=== PATIENT | male | born 1950 | race Caucasian/White ===

== ENCOUNTER → 2018-08-14 | Outpatient (CLI) | payer BC | END | disposition home or self-care (01) | LOC: RAH 15:55 | PROVIDERS: ATTEND Family Medicine | DX: S09.90XA Unspecified injury of head, initial encounter (principal); R41.0 Disorientation, unspecified; G31.9 Degenerative disease of nervous system, unspecified; X58.XXXA Exposure to other specified factors, initial encounter; Y93.89 Activity, other specified; Y92.89 Other specified places as the place of occurrence of the external cause; Y99.8 Other external cause status | CPT/HCPCS: 70450 ==

== ENCOUNTER → 2019-12-23 | Outpatient (CLI) | payer MEDICARE ==
[~2019-12-23] MED LIST: GADODIAMIDE 10 MMOL/20 ML VIAL IV ONE
== END | disposition home or self-care (01) ==
LOC: RAH 11:17
PROVIDERS: ATTEND Family Medicine
DX: I65.23 Occlusion and stenosis of bilateral carotid arteries (principal); G45.9 Transient cerebral ischemic attack, unspecified
CPT/HCPCS: 70544; 70549; 70551; A9579

== ENCOUNTER → 2023-11-13 | Outpatient (CLI) | payer OTHER ==
[2023-11-13 12:31] LABS: CREATININE 0.8 mg/dL (0.5-1.3); POTASSIUM 4.4 mmol/L (3.5-5.1)
== END | disposition home or self-care (01) ==
LOC: LAB 09:12
PROVIDERS: ATTEND Internal Medicine Cardiovascular Disease
DX: I10 Essential (primary) hypertension (principal); E78.5 Hyperlipidemia, unspecified
CPT/HCPCS: 36415; 80048; 80061

== ENCOUNTER 2025-07-06 10:51 | Day surgery (SDC) | payer OTHER ==
[2025-07-02 15:22] LABS: NUCLEATED RED BLOOD CELLS 4.4 % (0.0-0.19); PLATELET COUNT (AUTO) 133.0 K/uL (130-400); RED BLOOD CELL COUNT(AUTO) 2.52 MIL/uL (4.50-6.20); RED CELL DISTRIBUTION WIDTH 17.4 % (11.0-15.5); WHITE BLOOD COUNT (AUTO) 5.7 K/uL (4.8-10.8)
[2025-07-02 15:27] LABS: APPEARANCE,URINE CLEAR (CLEAR); GLUCOSE, URINE (UA) NEGATIVE (NEGATIVE); LEUKOCYTE ESTERASE ,URINE NEGATIVE Leu/uL (NEGATIVE); NITRATE,URINE NEGATIVE (NEGATIVE); OCCULT BLOOD,URINE NEGATIVE (NEGATIVE)
[2025-07-02 15:29] LABS: ADD UA MICROSCOPIC NO
[2025-07-02 15:32] LABS: INR 0.94 (0.85-1.15)
[2025-07-02 15:36] LABS: ASPARTATE AMINOTRANSFERASE 33.0 U/L (10-37); CREATININE 0.7 mg/dL (0.5-1.3); GLOMERULAR FILTR. RATE CALC 98.0 mL/min (>90); GLUCOSE,RANDOM 127.0 mg/dL (70-105); SODIUM SERUM 139.0 mmol/L (136-145); TOTAL PROTEIN, SERUM 6.9 g/dL (6.0-8.3); UREA NITROGEN, BLOOD 11.0 mg/dL (7-18)
[2025-07-02 15:45] VITALS: BP 110/56; PULSE 74; RESP 18; TEMP 97.2
--- NOTE | 2025-07-02 16:06 | HMCIMG ---
EXAM: CR Chest, 2 View. CLINICAL HISTORY: PRE OP COMPARISON: None provided. FINDINGS: LUNGS: Emphysematous lung changes No active infiltrate PLEURAL SPACES: No pleural effusion or pneumothorax. MEDIASTINUM: The cardiomediastinal silhouette is within normal limits. BONES: No acute osseous abnormality. IMPRESSION: 1. Emphysematous lung changes 2. No active infiltrate /[place]
--- NOTE | 2025-07-03 06:04 | EKG ---
[facility] Test Date: 2025-07-02 Test Time: 16:09:00 Pat Name: ALICE KNOWLES Department: [facility] Room: Gender: M Ticket Taker Ferryboat: [phone] : 1950 Requested By: NERI ALLISON Order Number: [id number] Reading MD: Hossein Carr Measurements Intervals [place] Rate: 71 P: 63 AL: 178 QRS: -43 QRSD: 80 T: 12 QT: 415 QTc: 450 Interpretive Statements Sinus rhythm Inferior infarct, old Consider anteroseptal infarct No previous ECG available for comparison Electronically Signed On 07-03-2025 18:56:31 CONVEX GRINDER by Hossein Carr Please click the below link to view image of tracing.
--- NOTE | 2025-07-05 11:03 | NUR ---
REPORT DR HARRELL REVIEWED EKG. OK TO PROCEED
--- NOTE | 2025-07-05 15:04 | NUR ---
report cbc faxed over to dr villavicencio/cynthia. smith to proceed Addendum: 07/05/25 at 1512 by CHUCK PENA RN RN dr najera/ juan diaz also informed as per dr villavicencio/ gabi ramirez
[~2025-07-06] VITALS: Ht 182.9 cm; Wt 62.5 kg
[2025-07-06] VITALS (10 sets, daily range): BP systolic 101–131; BP diastolic 57–74; PULSE 57–80; RESP 14–16; TEMP 97.3–97.5
[~2025-07-06 10:51] MED LIST changes: +CLOP75TA32 PO; -GADODIAMIDE 10 MMOL/20 ML VIAL IV ONE; +LOSA25TA41 PO; +METO-408 PO; +ROSU40TA88 PO
[2025-07-06] MEDS ORDERED: LACTATED RINGERS 1000ML 1,000 ML IV ONE (11:05)
[2025-07-06] MEDS ORDERED: LIDOCAINE PF 100MG/5ML (2%) SYRINGE 5ML ONE (11:49)
[2025-07-06] MEDS ORDERED: MIDAZOLAM HCL 1 MG/ML 2ML VIAL ONE (11:49)
[2025-07-06] MEDS: MEROPENEM 1GM 1 GM VIAL ONE (12:55)
--- NOTE | 2025-07-06 14:23 | OP ---
DATE OF PROCEDURE: 07/06/2025 PREOPERATIVE DIAGNOSIS: PSA of 4,372. PROCEDURE PERFORMED: Transrectal ultrasonography with guided biopsy, 6 cores of prostate. POSTOPERATIVE DIAGNOSIS: PSA of 4,372. ANESTHESIA: Sedation. INDICATIONS FOR PROCEDURE: This is a 74-year-old male with a PSA of 4,372 on 06/12, scheduled for transrectal ultrasound guided biopsy and indicated procedures. All risks, benefits, alternatives and potential complications of procedure were carefully reviewed with the patient. Questions were answered. He did request to proceed and did provide full informed consent. FINDINGS: The patient at transrectal ultrasound has a 25 g prostate. No hypoechogenicity identified. Prostatic capsule intact. DESCRIPTION OF PROCEDURE: The patient was duly identified. Informed consent was confirmed. Timeout was taken, brought to the operating room, placed on the table, placed under sedation, and then placed in a lateral decubitus position. Transrectal ultrasonography was then performed. Prostate was identified, 25 g. No hypoechogenicity is noted. Multiple calcifications noted. Capsule intact. Next, using a spring-loaded gun, 6 biopsies were taken, a total of 3 from the left lobe and 3 from the right lobe, sent to Pathology. He tolerated the procedure well. A gentle pressure for about 5 minutes was placed on the rectum. No complications. The patient was now awakened from anesthesia. He did receive preoperative IV antibiotic with meropenem, and following recovery from sedation, the patient was transferred from operating room to recovery room in good stable and hemodynamically satisfactory condition having experienced no complications. Plan is for the patient to be discharged home later today on oral antibiotics and follow up in my office in a week's time to review pathology report. No complications. TID: [id number] RECEIPT: [id number]
--- NOTE | 2025-07-06 14:25 | NUR ---
BOTH PT AND SPOUSE GIVEN VERBAL AND WRITTEN DISCHARGE INSTRUCTIONS. ASKED IF PT WOULD BE ABLE TO DRINK ALCOHOL TODAY BECAUSE PT IS AN ALCOHOLIC. I DID REITERATE TO BOTH OF THEM WE STRONGLY DO NOT RECOMMEND DRINKING ALCOHOL. PT TAKEN OUT VIA WHEELCHAIR SPOUSE DRIVING.
--- NOTE | 2025-07-07 02:33 | HMCIMG ---
EXAMINATION: Ultrasound (Transrectal) of the Prostate Clinical Indication: Abnormal prostate. Technique: Transrectal ultrasound examination of the prostate was performed using high-frequency endorectal probe. Both transverse and sagittal planes were evaluated. Comparison: None available. FINDINGS: The prostate demonstrates normal size and contour. A suspicious hypoechoic nodular lesion is visualized in the right side of the prostate at the base region. The remainder of the gland is unremarkable. No obvious calcifications or cystic changes noted. No periprostatic fluid collection detected. IMPRESSION: * Suspicious hypoechoic nodular lesion in the right base of the prostate. Further evaluation with dynamic contrast-enhanced MRI of the prostate and correlation with serum PSA levels is recommended to assess for malignancy. /[place]
== END 2025-07-06 14:33 | disposition home or self-care (01) ==
LOC: DAH 10:51
PROVIDERS: ATTEND Urology
DX: R97.20 Elevated prostate specific antigen [PSA] (principal); C61 Malignant neoplasm of prostate; I10 Essential (primary) hypertension; Z79.01 Long term (current) use of anticoagulants; Z79.899 Other long term (current) drug therapy
CPT/HCPCS: 71046; 80053; 85027; 85610; 85730; 87086; 81003; 36415; 93005; 55700; 76872; 88305; 88344; A6260; A4663; J7120 ×2; A4606; J3010; J1100; J2003; J2250; J2704; J2405; J2185; J3490; A4215 ×2; A4213; A4222; A4221; A4216; A4223 ×2

== ENCOUNTER 2025-08-08 18:46 | Inpatient (IN) | payer OTHER ==
[~2025-08-08] VITALS: Ht 182.9 cm; Wt 63.3 kg
--- NOTE | 2025-08-08 19:29 | ERN ---
ED Note History of Present Illness Stated Complaint: FALL Chief Complaint: Mechanical Fall Time Seen by MD: 19:11 Dictation: This is a 74-year-old male who presented to the emergency room via EMS after he sustained a fall on his driveway. This happened an hour ago when apparently he was walking on the driveway and his shoes slipped under his foot and he fell on the right shoulder. He denied any loss of consciousness. He does not take any blood thinners. He is under the care of Dr. Villa, oncologist for prostate cancer and he is undergoing chemotherapy? No chest pain pressure PND orthopnea no dizziness headache or any symptoms prior to fall. Temperature 98.3 pulse 103 respirations 20 blood pressure 104/78 with a pulse oximetry of 97% on room air His chronic medical problems include hypertension and prostate CA, daily tobacco abuse and EtOH Allergies: Coded Allergies: No Known Drug Allergies (Unverified Allergy, Unknown, 06/11/16) Home Meds Reported Medications Losartan Potassium (Losartan Potassium) 25 Mg Tablet, 25 MG PO AM, TAB 07/02/25 Rosuvastatin Calcium (Rosuvastatin Calcium) 40 Mg Tablet, 40 MG PO DAILY, TAB 07/02/25 Metoprolol Succinate (Metoprolol Succinate) 25 Mg Tab.er.24h, 12.5 MG PO AM, TAB 07/02/25 Clopidogrel Bisulfate (Clopidogrel) 75 Mg Tablet, 75 MG PO DAILY, TAB 07/02/25 Past Medical History Past Medical History: Cancer, Dementia, Hypertension, Other Additional Past Medical Hx: PROSTATE CA Surgical History: Other Surgical History Other: BACK SX X2 Additional History Comments: PROSTATE CANCER Family History: Negative 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, 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 Note Reviewed/Agreed w/PFSH: Yes Review of System Dictation Constitutional: Negative for fever,chills, and weight loss Eyes: Negative for injury, pain,redness, and discharge ENT: Negative for injury,pain or swelling Cardiovascular: Negative for chest pain, palpitations, and edema Respiratory: Negative for shortness of breath, cough, and wheezing, Abdomen/GI: Negative for abdominal pain, nausea, vomiting, diarrhea, and constipation Back: Negative for injury and pain : Negative for injury, bleeding and discharge MS/Extremity: Negative for injury and deformity right shoulder pain Skin: Negative for rash, and discoloration Neuro: Negative for headache, weakness, numbness, tingling, and seizure Psych: Negative for suicide ideation, homicidal ideation, and hallucinations Initial Vital Sign VS Vital Signs Date Time Temp Pulse Resp B/P (MAP) Pulse Ox O2 Delivery O2 Flow Rate FiO2 08/08/25 18:47 98.2 103 20 104/78 97 Room Air 0 08/08/25 19:46 21 Physical Exam Dictation General: awake, alert, NAD thin emaciated chronically ill-appearing male Head/Face: Normocephalic, atraumatic Eyes: PERRL, EOMI, vision at baseline ENT: oral cavity clear, TMs clear, no signs of infection, poor dentition Neck: Trachea midline, supple, no nuchal rigidity Cardiovascular: RRR, normal S1/S2, No MRGs, no JVD Respiratory: Prolonged expiratory phase no respiratory distress, No rales or wheezes Abdomen: Soft, non-tender, non-distended, normal bowel sounds, no guarding or rebound. Skin: Warm, dry, normal turgor, no rash MS/Extremity: Pulses equal, no cyanosis, neurovascular intact, FROM right shoulder in his sling, deformity in the right shoulder area, severe tenderness and reduced range of motion Neuro: COAx4, GCS 15, strength 5/5, CN 2-12 intact, normal cerebellar exam, normal gait, Psych: Normal behavior, mood, and affect normal Extremities-trace edema without any palpable cords, Homans sign is negative Results (Laboratory/Radiology) Laboratory/Radiology Laboratory Tests Test 08/08/25 19:30 White Blood Count 5.7 K/uL (4.8-10.8) Red Blood Count 2.03 MIL/uL (4.50-6.20) L Hemoglobin 6.8 g/dL (14.0-18.0) *L Hematocrit 21.4 % (42-54) L Mean Corpuscular Volume 105.4 fL (79-99) H Mean Corpuscular Hemoglobin 33.5 pg (27.0-33.0) H Mean Corpuscular Hemoglobin Concent 31.8 g/dL (32.0-36.0) L Red Cell Distribution Width 19.5 % (11.0-15.5) H Platelet Count 180 K/uL (130-400) Mean Platelet Volume 9.2 fL (7.5-10.5) Immature Granulocyte % (Auto) 5.9 % (0-1) H Neutrophils (%) (Auto) 67.9 % (40.0-77.0) Lymphocytes (%) (Auto) 17.3 % (21.0-51.0) L Monocytes (%) (Auto) 7.0 % (3.0-13.0) Eosinophils (%) (Auto) 1.2 % (0.0-8.0) Basophils (%) (Auto) 0.7 % (0.0-5.0) Neutrophils # (Auto) 3.9 K/uL (1.8-7.7) Lymphocytes # (Auto) 1.0 K/uL (1.0-4.8) Monocytes # (Auto) 0.4 K/uL (0.1-1.0) Eosinophils # (Auto) 0.07 K/uL (0.00-0.70) Basophils # (Auto) 0.04 K/uL (0.00-0.20) Absolute Immature Granulocyte (auto 0.34 K/uL (0-1) Nucleated Red Blood Cells 0.7 % (0.0-0.19) H Red Blood Cell Morphology See comments Sodium Level 138 mmol/L (136-145) Potassium Level 3.4 mmol/L (3.5-5.1) L Chloride Level 105 mmol/L (101-111) Carbon Dioxide Level 24 mmol/L (21-32) Blood Urea Nitrogen 12 mg/dL (7-18) Creatinine 1.1 mg/dL (0.5-1.3) Glomerular Filtration Rate Calc 71 mL/min (>90) Random Glucose 121 mg/dL (70-105) H Total Calcium 5.7 mg/dL (8.5-10.1) *L Total Creatine Kinase 82 U/L (21-232) Troponin I High Sensitivity 106 ng/L (4-75) *H Labs Reviewed?: Yes X-RAY Comment: REASON: fall ORDERING PHYSICIAN: KAVITHA ENGLISH MD PROCEDURE: SHOL 2V RT - SHOULDER COMP 2+VWS RT EXAM: CR right Shoulder, 2 View. CLINICAL HISTORY: fall COMPARISON: None provided. FINDINGS: BONES: Acute comminuted fracture multi part fracture proximal humerus. Involves humeral neck as well as greater tuberosity. Some impaction JOINTS: No dislocation. The joint spaces are normal. SOFT TISSUES: The soft tissues are unremarkable. IMPRESSION: Acute comminuted fracture multi part fracture proximal humerus. Involves humeral neck as well as greater tuberosity. Some impaction /[place] DICTATED BY: ALICE VARELA MD DATE: 08/08/252137 ELECTRONICALLY SIGNED BY: ALICE VARELA MD DATE: 08/08/252137 ED Course ED Course Orders Procedure Category Date Status Time Cardiac Panel LAB 08/08/25 Complete 19:13 Cbc With Differential LAB 08/08/25 Complete 19:13 Basic Metabolic Panel LAB 08/08/25 Complete 19:13 Shoulder Comp 2+Vws Rt RAD 08/08/25 Resulted 19:13 Chest 1vw RAD 08/08/25 Logged 19:18 12 Lead Ekg Tracing- EKG 08/08/25 Resulted Technical 19:18 Morphine 2mg Syg PHA 08/08/25 Complete (Morphine 2mg Syg) 19:30 Orphenadrine Citrate PHA 08/08/25 Complete (Norflex) 20:30 Hydrocodone/Apap PHA 08/08/25 Complete 5/325 (Tate 5/325mg) 21:00 Hydromorphone 1 Mg PHA 08/08/25 Complete Inj (Dilaudid 1mg Inj 21:00 Ondansetron 4mg Inj PHA 08/08/25 Complete (Zofran 4mg Inj) 21:00 Type And Screen BBK 08/08/25 In Process 21:04 Consent For CPOE 08/08/25 Transmitted Transfusion 21:04 Rbc-No Active Bleeding BBK 08/08/25 In Process 21:04 Shoulder Ltd 1vw Rt RAD 08/08/25 Resulted 21:23 Calcium Gluc 1gm PHA 08/08/25 Logged (Calcium Gluc 1gm 22:30 Edm Admit Bridge Order ADM 08/08/25 Transmitted 22:05 Current Medications Medications (Trade) Dose Ordered Sig/Mari Route PRN Reason Start Time Stop Time Status Last Admin Dose Admin Acetaminophen/ Hydrocodone Bitart (NORco 5/325MG) 1 tab ONCE ONCE PO 08/08/25 21:00 08/08/25 21:01 DC 08/08/25 20:51 Calcium Gluconate (Calcium Gluc 1gm Vial) 1 gm AD ONCE IV 08/08/25 22:30 08/08/25 22:31 UNV Hydromorphone HCl (DiLAUDid 1MG INJ) 1 mg ONCE ONCE IVP 08/08/25 21:00 08/08/25 21:32 DC 08/08/25 21:51 Morphine Sulfate (morPHINE 2MG SYG) 2 mg ONCE ONCE IVP 08/08/25 19:30 08/08/25 19:31 DC 08/08/25 19:37 Ondansetron HCl (zoFRAN 4MG INJ) 4 mg ONCE ONCE IVP 08/08/25 21:00 08/08/25 21:32 DC 08/08/25 21:51 Orphenadrine Citrate (Norflex) 60 mg ONCE ONCE IVP 08/08/25 20:30 08/08/25 20:31 DC Vital Signs Date Time Temp Pulse Resp B/P (MAP) Pulse Ox O2 Delivery O2 Flow Rate FiO2 08/08/25 21:36 82 18 126/69 100 Room Air* 0 N/A ETT Piece+ 08/08/25 19:46 82 18 109/56 99 Room Air* 0 21 08/08/25 18:47 98.2 103 20 104/78 97 Room Air 0 Medical Decision Making MDM Differential diagnosis- Closed head injury, intracranial event, depressed skull fractures, whiplash injury to the neck, herniated discs, cervical vertebral fracture, right shoulder pain, right shoulder dislocation, fracture of the humerus, contusion This is a 74-year-old male who presented to the emergency room via EMS after he sustained a fall on his driveway. This happened an hour ago when apparently he was walking on the driveway and his shoes slipped under his foot and he fell on the right shoulder. He denied any loss of consciousness. He does not take any blood thinners. He is under the care of Dr. Villa, oncologist for prostate cancer and he is undergoing chemotherapy? No chest pain pressure PND orthopnea no dizziness headache or any symptoms prior to fall. Temperature 98.3 pulse 103 respirations 20 blood pressure 104/78 with a pulse oximetry of 97% on room air His chronic medical problems include hypertension and prostate CA, daily tobacco abuse and EtOH I requested Labs right shoulder x-ray and with known history of alcoholism and frailty with a cancer I also requested head CT and C-spine. 7:25 p.m. patient adamantly refused head CT and C-spine. 8:00 p.m. lab called the results of hemoglobin is 6.8. I had requested type and cross and also inquired with the patient about PRBC transfusion and he adamantly refused stating that he does not wanted Patient's spouse by this time has showed up and left the decision to the patient 9:[address] Benjie Cavanaugh orthopedic surgeon about the fracture of the right humerus in the multiple places and intractable pain, he requested wide scapular view and informed me that he will see the patient tomorrow after his OR schedule. I updated the patient and spouse and offered to admit to the hospital for adequate pain control, transfusion of PRBC and also have orthopedic evaluation in a.m. and patient eventually agreed Patient's pain has been intractable and so far has a received morphine, hydrocodone without much relief Additional Dilaudid requested 10:05 p.m. patient accepted by Heather mid-level provider for [facility] hospitalist group for admission and further management Problem List Problem List: (1) Prostate cancer (2) Tobacco abuse (3) Alcohol use disorder (4) Cancer cachexia (5) Right anterior shoulder pain (6) Fall from standing (7) Severe anemia (8) Intractable pain DX & DISP Disposition: Discharge Departure Impression: Primary Impression: Fall from standing Additional Impressions: Right anterior shoulder pain, Prostate cancer, Tobacco abuse, Alcohol use disorder, Cancer cachexia, Severe anemia, Intractable pain Condition: Stable Additional Instructions: Patient and the caregiver have been informed of all the diagnostic tests and the imaging conducted during the today's visit to the emergency room and has verbalized understanding of the results I have personally reviewed and interpreted all diagnostic exams performed here in the ER today as well as the vital signs documented by the nursing staff. The patient is now being discharged to home and should follow up with the primary care physician or the specialist as directed by the ER staff. Follow-up with primary care provider in 1 to 2 days. Take medications as directed here in the emergency room. Okay to continue home medications unless otherwise discussed during your visit in the emergency room today. Return to your nearest emergency room if symptoms worsen or if there is no improvement. Call 911 if you need immediate assistance. Take Tylenol or Motrin over -the-counter as needed and if no contraindications are present. Increase oral hydration. A wound culture or urine culture was ordered here in the emergency room department please follow-up with primary care provider and advise them to get repeat ports from our facility. If you had any Donald wrap/splints that were applied here, please do not remove them until you see your primary care or specialty. 1 schedule a follow-up appointment; call your primary care physician's office on the next business day to set up a follow-up appointment. 2. Monitor symptoms; if your symptoms worsen return to the emergency room immediately. 3. Return to school/work; you may return to work or school in 2 days or as directed by your primary care physician. 4. Manage pain and fever; take [id number] Tylenol or Advil for pain or fever if there are no contraindications follow the recommended dosage i nstructions. 5. Stay well hydrated; drink plenty of oral fluids to stay hydrated. 6. Take prescribed medications; take any medications prescribed in the emergency room as directed bring them with you to your primary care physician visit for possible adjustments. 7. Complete medication course; finish the entire course of medication as prescribed even if you start feeling better. Do not have any leftover medication unless instructed otherwise. 8. Follow up on culture results; if a urine culture and wound culture was ordered in the emergency room please follow-up with your primary care physician within 2-3 days to review the culture and sensitivity report for appropriate antibiotic therapy adjustments. 9. Resume home medications; you may resume taking your home medications unless instructed otherwise. Referrals: JULIAN MORRISSEY MD (PCP) KAVITHA ENGLISH MD Aug 08, 2025 19:29
--- NOTE | 2025-08-08 19:35 | EKG ---
[facility] Test Date: 2025-08-08 Test Time: 19:26:10 Pat Name: ALICE KNOWLES Department: ED Room: Gender: M Service Advocate Contact: [phone] : 1950 Requested By: KAVITHA ENGLISH Order Number: [id number] Reading MD: Brian Amezquita Measurements Intervals [place] Rate: 81 P: 66 [place]: 195 QRS: 4 QRSD: 84 T: 63 QT: 421 QTc: 484 Interpretive Statements Sinus rhythm Atrial premature complex Low voltage, extremity leads Nonspecific STT abnormality Compared to ECG 07/02/2025 16:09:00 Atrial premature complex(es) now present Low QRS voltage now present Myocardial infarct finding no longer present Electronically Signed On 08-08-2025 21:54:40 EMERGENCY DEPARTMENT MANAGER by Brian Amezquita Please click the below link to view image of tracing.
[2025-08-08 19:38] LABS: IMMATURE GRANULOCYTE ABSOLUTE 0.34 K/uL (0-1); NUCLEATED RED BLOOD CELLS 0.7 % (0.0-0.19); PLATELET COUNT (AUTO) 180 K/uL (130-400); RED BLOOD CELL COUNT(AUTO) 2.03 MIL/uL (4.50-6.20); RED CELL DISTRIBUTION WIDTH 19.5 % (11.0-15.5); WHITE BLOOD COUNT (AUTO) 5.7 K/uL (4.8-10.8)
[2025-08-08 19:53] LABS: CREATINE KINASE, TOTAL 82.0 U/L (21-232); CREATININE 1.1 mg/dL (0.5-1.3); GLOMERULAR FILTR. RATE CALC 71.0 mL/min (>90); GLUCOSE,RANDOM 121.0 mg/dL (70-105); SODIUM SERUM 138.0 mmol/L (136-145); UREA NITROGEN, BLOOD 12.0 mg/dL (7-18)
--- NOTE | 2025-08-08 20:00 | NUR ---
PATIENT REFUSING BLOOD TRANSFUSION AT THIS TIME.
--- NOTE | 2025-08-08 20:05 | NUR ---
PATIENT REFUSED CT SCANS AND TYPE AND SCREEN BLOOD DRAW, EDUCATED ON REASON HE NEEDED IT, STILL REFUSES.
--- NOTE | 2025-08-08 20:10 | NUR ---
MD AND AT BEDSIDE.
--- NOTE | 2025-08-08 20:11 | NUR ---
REFUSES CHEST XRAY.
[2025-08-08] MEDS: ORPHENADRINE 60MG/2ML IVP ONE (20:33)
--- NOTE | 2025-08-08 20:36 | NUR ---
PATIENT REFUSING NORFLES IV FOR PAIN, REQUESTING HYDROCODONE PILL.
--- NOTE | 2025-08-08 20:39 | HMCIMG ---
EXAM: CR right Shoulder, 2 View. CLINICAL HISTORY: fall COMPARISON: None provided. FINDINGS: BONES: Acute comminuted fracture multi part fracture proximal humerus. Involves humeral neck as well as greater tuberosity. Some impaction JOINTS: No dislocation. The joint spaces are normal. SOFT TISSUES: The soft tissues are unremarkable. IMPRESSION: Acute comminuted fracture multi part fracture proximal humerus. Involves humeral neck as well as greater tuberosity. Some impaction /[place]
--- NOTE | 2025-08-08 20:47 | NUR ---
MD AND AT BEDSIDE.
[2025-08-08] MEDS: HYDROcodone/APAP 5/325 1 TAB TABLET PO ONE (20:51)
--- NOTE | 2025-08-08 22:10 | HMCIMG ---
EXAM: CR right Shoulder, 1 View. CLINICAL HISTORY: Y VIEW PER DR, R/O DISLOCATION COMPARISON: None provided. FINDINGS: BONES: No acute fracture or aggressive appearing osseous lesion. JOINTS: No dislocation evident on single view only SOFT TISSUES: The soft tissues are unremarkable. IMPRESSION: No dislocation evident on single view only /[place]
--- NOTE | 2025-08-08 23:20 | HP ---
[facility] Date of Service: Aug 08, 2025 Time of Service: 23:20 PCP: Sinai Salcido HISTORY OF PRESENT ILLNESS: This is a 74-year-old male with past medical history of alcoholism,heavy smoker,prostate cancer,dementia,hypertension and hyperlipidemia who was brought by EMS to the ED after he fell on his driveway.As per patient he was walking on the driveway when his shoes slipped under his foot and fell on his right shoulder.Patient denies hitting his head,passing out or any seizure activity.Trino nguyen reports he is taking Plavix 75 mg po daily and his oncologist is and he is also getting chemotherapy as well. Patient also states that he smoke 1 pack of cigarette per day and drinks 6 beers per day and denies recreational drug use. Seen and examined patient in the Er awake,alert and coherent,patient appears comfortable.Patient denies headache,dizziness,nausea,vomiting ,chest pain,palpitation and shortness of breath.Latest V/S temperature 98.2, heart rate 81, blood pressure 149/71 saturation 99% on room air.Labs : WBC 5, hemoglobin 6.8, hematocrit 21, platelet count 180. Potassium 3.4, random glucose 121, total calcium 5.7, troponin 106. Serum alcohol less than three. Right shoulder x-ray result revealed no dislocation evident on single view only. Right shoulder x-ray result revealed acute comminuted fracture multipart fracture proximal humerus involves humeral neck as well as greater tuberosity. Some impaction. While in the ER patient received 1 g calcium gluconate IV, Zofran 4 mg IV, Dilaudid 1 mg IV hydrocodone one tab p.o., dex 60 mg IV push and morphine 2 mg IV push.As per ER MD , has been notified about the consult and will evaluate the patient tomorrow.Patient has been refusing blood transfusion and CT imaging studies. REVIEW OF SYSTEMS CONSTITUTIONAL: Denies fevers, chills, or night sweats. No unintentional weight loss reported. NEUROLOGICAL: Denies headache, amaurosis fugax, motor weakness, sensory d eficit, vertigo/spinning sensation, gait abnormalities, or tremors. ENT: No hearing loss, otalgia, otorrhea, rhinitis, rhinorrhea, hoarseness, or sore throat. CARDIOVASCULAR: Denies any exertional angina, dyspnea on exertion, orthopnea, paroxysmal nocturnal dyspnea, palpitations, life-threatening arrhythmias, claudication. PULMONARY: Denies any shortness of breath, cough, phlegm/sputum, hemoptysis, pleuritic chest pain. SLEEP: Denies morning headaches, daytime somnolence or napping. Denies difficulty falling asleep, staying asleep, waking from sleep. Denies knowledge of snoring. GASTROINTESTINAL: Denies any type of dysphagia to either liquids or solids. Denies nausea, vomiting, pyrosis, early satiety, abdominal pain, diarrhea, constipation, or changes in stool consistency or caliber. Denies coffee-ground emesis, hematemesis, hematochezia, or melanotic stools. GENITOURINARY: Denies frequency, urgency, nocturia, hematuria or incontinence (Storage/Irritative symptoms.) Low urinary stream, straining to void, urinary intermittency or hesitancy, splitting of the voiding stream, terminal dribbling. ENDOCRINOLOGIC: Denies polyuria, polydipsia, polyphagia or heat/cold intolerances. HEMATOLOGIC: Denies thrombophilia/previous clots, or coagulopathy/bleeding disorders. ONCOLOGIC: Denies personal history of malignancy. DERMATOLOGIC: Denies rashes or pruritus. PSYCHIATRIC: Denies any suicidal or homicidal ideation. Denies hallucinations. PAST MEDICAL HISTORY: [ prostate cancer,dementia,hypertension and hyperlipidemia ] PAST SURGICAL HISTORY: [ Back surgery x 2 2009 and 2013 ] PAST SOCIAL HISTORY: [ Patient lives with . Patient admits to smoking one pack of cigarettes per day drinks six beers per day denies recreational drug use] FAMILY HISTORY: [ Noncontributory ] Coded Allergies: No Known Drug Allergies (Unverified Allergy, Unknown, 06/11/16) PHYSICAL EXAM GENERAL APPEARANCE: The patient is awake, alert, and oriented, in no acute cardiopulmonary distress. NEUROLOGICAL: Cranial nerves II-XII grossly intact. Motor is 5/5 in bilateral upper and lower extremities proximal to distal. No sensory deficits. HEENT: Face is symmetric. Pupils are equal and reactive. Extraocular movements are intact. NECK: Supple. No JVD. No thyromegaly. No submental, submandibular, pre- /postauricular, occipital or supraclavicular lymphadenopathy. CHEST: Normal chest expansion. No Telemetry. LUNGS: Absence of any rales, rhonchi or any wheezing. CARDIOVASCULAR: Regular. S1 and S2 normal. No appreciable rubs, murmurs or gallops. ABDOMEN: Soft, nontender, and nondistended. There is no rebound, voluntary guarding, or rigidity. : Deferred. No Butt. EXTREMITIES: Non-edematous and not cyanotic. No clubbing. Good capillary refill. SKIN: No skin breakdown. Vital Sign (Last 24 Hours) 08/08/25 08/08/25 18:47 21:36 Temp 98.2 Pulse 82 Resp 18 B/P (MAP) 126/69 Pulse Ox 100 O2 Delivery Room Air* ETT Piece+ O2 Flow Rate 0 FiO2 N/A LABS: Laboratory: Test 08/08/25 19:30 Range/Units White Blood Count 5.7 4.8-10.8 K/uL Red Blood Count 2.03 L 4.50-6.20 MIL/uL Hemoglobin 6.8 *L 14.0-18.0 g/dL Hematocrit 21.4 L 42-54 % Mean Corpuscular Volume 105.4 H 79-99 fL Mean Corpuscular Hemoglobin 33.5 H 27.0-33.0 pg Mean Corpuscular Hemoglobin Concent 31.8 L 32.0-36.0 g/dL Red Cell Distribution Width 19.5 H 11.0-15.5 % Platelet Count 180 130-400 K/uL Mean Platelet Volume 9.2 7.5-10.5 fL Immature Granulocyte % (Auto) 5.9 H 0-1 % Neutrophils (%) (Auto) 67.9 40.0-77.0 % Lymphocytes (%) (Auto) 17.3 L 21.0-51.0 % Monocytes (%) (Auto) 7.0 3.0-13.0 % Eosinophils (%) (Auto) 1.2 0.0-8.0 % Basophils (%) (Auto) 0.7 0.0-5.0 % Neutrophils # (Auto) 3.9 1.8-7.7 K/uL Lymphocytes # (Auto) 1.0 1.0-4.8 K/uL Monocytes # (Auto) 0.4 0.1-1.0 K/uL Eosinophils # (Auto) 0.07 0.00-0.70 K/uL Basophils # (Auto) 0.04 0.00-0.20 K/uL Absolute Immature Granulocyte (auto 0.34 0-1 K/uL Nucleated Red Blood Cells 0.7 H 0.0-0.19 % Red Blood Cell Morphology See comments Sodium Level 138 136-145 mmol/L Potassium Level 3.4 L 3.5-5.1 mmol/L Chloride Level 105 101-111 mmol/L Carbon Dioxide Level 24 21-32 mmol/L Blood Urea Nitrogen 12 7-18 mg/dL Creatinine 1.1 0.5-1.3 mg/dL Glomerular Filtration Rate Calc 71 >90 mL/min Random Glucose 121 H 70-105 mg/dL Total Calcium 5.7 *L 8.5-10.1 mg/dL Total Creatine Kinase 82 21-232 U/L Troponin I High Sensitivity 106 *H 4-75 ng/L DIAGNOSTICS / RADIOLOGY: [ ] ASSESSMENT: Acute comminuted fracture multipart fracture proximal humerus per XR POA Status post fall injury POA Right shoulder pain POA Acute anemia POA Mild hypokalemia POA Hypocalcemia POA Elevated troponin POA Nicotine dependence POA Alcoholism POA Dementia POA Hypertension POA Hyperlipidemia POA Prostate cancer POA PLAN: We will admit patient in medical telemetry We will keep nothing by mouth We will start banana bag at 100 mL/hour We will continue blood transfusion previously ordered per ER We will start on famotidine 20 mg IV daily for GI prophylaxis We will replace electrolytes as needed per protocol Monitor alcohol withdrawal start on CIWA protocol We will add prn medication for fever,pain,cough , nausea and vomiting We will reconcile home meds once medlist available We will check fecal occult blood We will request case management service We will seek Cardiology consultation for elevated troponin and cardiac clearance We will seek orthopedic surgeon consultation Fall precaution We will request labs in am Further orders to follow depending on above results Case discussed with attending physician and came up with above treatment and plan of care. ADVANCED CARE PLANNING 1. Which of the following were discussed? Hospice Care - No Therapeutic options - Yes Advance Directives - No Other discussions - 2. Discussed with who? Patient 3. Voluntary nature of this service was explained to the patient? Yes 4. Amount of time spent - 23 min 5. Reviewed by Physician? (if this service was performed by NPP) Yes Patient seen and examined by me. Agree with note by BOLT HEADER SEE ADDITIONAL ORDERS PER CHART DISCUSSED WITH NURSING STAFF WILLIE BACH TRACTOR OPERATOR BATTERY Aug 08, 2025 23:20
[2025-08-08] MEDS ORDERED: PHARMACY COMMUNICATION MISC PRN (23:30)
[2025-08-09] VITALS (7 sets, daily range): BP systolic 94–158; BP diastolic 59–69; PULSE 78–94; RESP 16–22; TEMP 97.7–98.3; O2SAT 95–96
[2025-08-09] MEDS: CALCIUM GLUC 1GM/10ML VIAL IV ONE (00:26)
[2025-08-09] MEDS: THIAMINE HCL 100 MG, FOLic ACID 5 MG/ML VIAL 1 MG, M.V.I. IV [ADULT] 10 ML in 0.9%NACL ... IV SCH (00:30)
--- NOTE | 2025-08-09 01:02 | NUR ---
arrival patient alert and oriented times 4. plan of care discussed with him and he verbalized understanding. patient still refusing ct of the head, ct of cervical sipine. He agreed to the 1 unit of prbc. He is anxious and sweating. He is trying to sleep now. 1 unit of prb started and no reaction noted. call light within reach, bed alarm on, 2 side rails up. will continue to monitor patient.
--- NOTE | 2025-08-09 03:14 | NUR ---
home medications asked the patient to call his to ask for his home medications. Nasrin Barahona will bring them in the morning.
[2025-08-09] MEDS ORDERED: PoTASSium chl 10% ELIXIR 20MEQ 20 MEQ/15 ML UDCUP PO PRN (06:30)
[2025-08-09 06:56] LABS: IMMATURE GRANULOCYTE ABSOLUTE 0.47 K/uL (0-1); NUCLEATED RED BLOOD CELLS 0.6 % (0.0-0.19); PLATELET COUNT (AUTO) 158 K/uL (130-400); RED BLOOD CELL COUNT(AUTO) 2.76 MIL/uL (4.50-6.20); RED CELL DISTRIBUTION WIDTH 22.8 % (11.0-15.5); WHITE BLOOD COUNT (AUTO) 8.2 K/uL (4.8-10.8)
[2025-08-09 07:15] LABS: INR 1.03 (0.85-1.15)
--- NOTE | 2025-08-09 07:28 | NUR ---
cardiology paged dr. hayes for new consult. pending call back
--- NOTE | 2025-08-09 07:30 | NUR ---
cardiology dr. hayes called back and is aware of consult. no new orders were given. he will see the patient.
[2025-08-09 08:02] LABS: ASPARTATE AMINOTRANSFERASE 27.0 U/L (10-37); CREATININE 1.0 mg/dL (0.5-1.3); GLOMERULAR FILTR. RATE CALC 80.0 mL/min (>90); GLUCOSE,RANDOM 84.0 mg/dL (70-105); SODIUM SERUM 140.0 mmol/L (136-145); TOTAL PROTEIN, SERUM 6.7 g/dL (6.0-8.3); UREA NITROGEN, BLOOD 10.0 mg/dL (7-18)
[2025-08-09 08:23] LABS: % IRON SATURATION 41.0 % (30-44); IRON, SERUM 105.0 mcg/dL (65-175)
--- NOTE | 2025-08-09 08:34 | CONS ---
[facility] Cardiology Consultation Note Cardiology consult dictated for Trice Ozuna MD Date of service 08/09/2025 Chief complaint: Status post fall Reason for consult: Elevated troponin Primary director of education and training: Dr. Trice Ozuna History of present illness: This is a 74-year-old male presented for evaluation of painful right shoulder status post fall. He denies syncope states was walking outside on a steep area and missed a step and fell. We were called to evaluate him due to abnormal elevated troponin. He had a total of 106 followed by 96. No 12 lead EKG available at this time. On x-ray he has a fracture of the right proximal humerus and is wearing a sling currently. He denies chest pain shortness of breath dizziness syncope or palpitations. He does have a history of silent inferior wall NM on 12 lead EKG with a Lexiscan Cardiolite in 2015 demonstrating inferior ischemia. He was recently diagnosed with prostate cancer in his undergoing chemotherapy. Review of systems: 14 point review of systems performed pertinent positives and negatives discussed in HPI Past medical history: Positive for silent inferior wall myocardial infarction on preop EKG with mild inferior ischemia on Cardiolite stress test May 2016, hypertension, tobacco and alcohol abuse, dyslipidemia, ischemic CVA in 2019, chronic venous insufficiency of the right lower extremity, prostate cancer on chemotherapy. Past surgical history: Positive for back surgery 2016 and 2018 Family history: Noncontributory Social history: Patient has a history of tobacco and alcohol abuse lives with . 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 Allergies: No known allergies Review of blood work: Troponin 106, 96. CBC with hemoglobin of 8.8 initially 6.8, hematocrit of 26.7, platelets of 158. Basic metabolic panel with sodium of 140, potassium 3.9 calcium is 5.7, BUN of 10 creatinine of 1.0 and a normal GFR. Review of medications: Famotidine, thiamine and multivitamin IV, lorazepam, magnesium and potassium scale PRN. Physical exam: Blood pressure this morning 94/64 heart rate of 82 beats per minute and regular normal S1-S2 no rubs gallops murmurs noted. Neck is supple no jugular vein distention no carotid bruits. Bilateral breath sounds are clear to auscultation. Lower extremities no edema no cyanosis. He is wearing a right arm sling. He is alert awake and oriented. All others within normal limits. Assessment: Minimally Elevated troponin (106, 96) Status post trip and fall with fracture of right proximal humerus Anemia Prostate cancer on chemotherapy History of inferior wall NM on preop EKG Lexiscan Cardiolite 2016 inferior ischemia CVA 2019 Dyslipidemia Hypertension Plan: At this point we have a 74-year-old male presented for evaluation of shoulder pain after a trip and fall. Cardiology consult was requested due to elevated troponin with total of 106 followed by 96. He does have a history of Magy scan Cardiolite demonstrating inferior ischemia in 2016. Patient denies chest pain no shortness of breath dizziness syncope or palpitations. Troponins are minimally elevated and flat. We will obtain one more troponin level and a 12 lead EKG. He is pending orthopedic consult. ATTESTATION BY PHYSICIAN I have seen and examined the patient. I reviewed the documentation, medical decision making, and treatment plan as noted by the mid-level provider above. I agree with the findings and plan of care. TRICE OZUNA MD, [facility] Aug 09, 2025 08:34 TRICE OZUNA MD Aug 09, 2025 09:58
[2025-08-09] MEDS: FAMOTIDINE 20MG VIAL IV SCH (08:38)
--- NOTE | 2025-08-09 10:18 | EKG ---
[facility] Test Date: 2025-08-09 Test Time: 10:00:01 Pat Name: ALICE KNOWLES Department: [facility] Room: 407 Gender: M Construction Administrator: JOSIE PARKERB: 1950 Requested By: CRUZ BARDALES Order Number: [id number] Reading MD: Raymundo Iqbal Measurements Intervals [place] Rate: 81 P: -1 AR: 144 QRS: -14 QRSD: 74 T: 42 QT: 410 QTc: 476 Interpretive Statements Normal sinus rhythm Low voltage QRS Electronically Signed On 08-09-2025 19:07:46 CRYOLITE RECOVERY OPERATOR by Raymundo Iqbal Please click the below link to view image of tracing.
[2025-08-09] MEDS ORDERED: MAGNESIUM 2GM PREMIX 50ML 50 ML IV PRN (10:30)
--- NOTE | 2025-08-09 10:36 | PN ---
[facility] PROGRESS NOTE Date of Service: Aug 09, 2025 Time of Service: 10:36 SUBJECTIVE: HISTORY OF PRESENT ILLNESS: This is a 74-year-old male with past medical history of alcoholism,heavy smoker,prostate cancer,dementia,hypertension and hyperlipidemia who was brought by EMS to the ED after he fell on his driveway.As per patient he was walking on the driveway when his shoes slipped under his foot and fell on his right shoulder.Patient denies hitting his head,passing out or any seizure activity.Patient reports he is taking Plavix 75 mg po daily and his oncologist is and he is also getting chemotherapy as well. Patient also states that he smoke 1 pack of cigarette per day and drinks 6 beers per day and denies recreational drug use. Seen and examined patient in the Er awake,alert and coherent,patient appears comfortable.Patient denies headache,dizziness ,nausea,vomiting ,chest pain,palpitation and shortness of breath.Latest V/S temperature 98.2, heart rate 81, blood pressure 149/71 saturation 99% on room air.Labs : WBC 5, hemoglobin 6.8, hematocrit 21, platelet count 180. Potassium 3.4, random glucose 121, total calcium 5.7, troponin 106. Serum alcohol less than three. Right shoulder x-ray result revealed no dislocation evident on single view only. Right shoulder x-ray result revealed acute comminuted fracture multipart fracture proximal humerus involves humeral neck as well as greater tuberosity. Some impaction. While in the ER patient received 1 g calcium gluconate IV, Zofran 4 mg IV, Dilaudid 1 mg IV hydrocodone one tab p.o., dex 60 mg IV push and morphine 2 mg IV push.As per ER MD , has been notified about the consult and will evaluate the patient tomorrow. 08/09/2025: Patient was seen and evaluated this morning, no family at bedside. He is awake, alert, oriented x3, saturating 96% with room air. Patient complains of severe pain in right shoulder, denies any new or worsening symptoms. Patient says that he drinks 1 pint of whiskey daily. On presentation patient hemoglobin was 6.8, he received 1 unit of RBC yesterday. Morning lab showed H&H 8.8, 26.7, potassium 5.7, ionized calcium 0.72, albumin 3.4, corrected calcium 6.2. Chest x-ray showed acute comminuted multipart fracture proximal humerus, involving humeral neck as well as greater tuberosity with some impaction. Patient is currently on CIWA protocol, started IV calcium gluconate, oral calcium carbonate, nicotine patch, Dilaudid 0.2 mg for severe pain q.4 PRN. Cardiology, Orthopedic surgery on board we will continue to follow their recommendations. REVIEW OF SYSTEMS CONSTITUTIONAL: Denies fevers, chills, or night sweats. No unintentional weight loss reported. NEUROLOGICAL: Denies headache, amaurosis fugax, motor weakness, sensory deficit, vertigo/spinning sensation, gait abnormalities, or tremors. ENT: No hearing loss, otalgia, otorrhea, rhinitis, rhinorrhea, hoarseness, or sore throat. CARDIOVASCULAR: Denies any exertional angina, dyspnea on exertion, orthopnea, paroxysmal nocturnal dyspnea, palpitations, life-threatening arrhythmias, claudication. PULMONARY: Denies any shortness of breath, cough, phlegm/sputum, hemoptysis, pleuritic chest pain. SLEEP: Denies morning headaches, daytime somnolence or napping. Denies difficulty falling asleep, staying asleep, waking from sleep. Denies knowledge of snoring. GASTROINTESTINAL: Denies any type of dysphagia to either liquids or solids. Denies nausea, vomiting, pyrosis, early satiety, abdominal pain, diarrhea, constipation, or changes in stool consistency or caliber. Denies coffee-ground emesis, hematemesis, hematochezia, or melanotic stools. GENITOURINARY: Denies frequency, urgency, nocturia, hematuria or incontinence (Storage/Irritative symptoms.) Low urinary stream, straining to void, urinary intermittency or hesitancy, splitting of the voiding stream, terminal dribbling. ENDOCRINOLOGIC: Denies polyuria, polydipsia, polyphagia or heat/cold intolerances. HEMATOLOGIC: Denies thrombophilia/previous clots, or coagulopathy/bleeding di sorders. ONCOLOGIC: Denies personal history of malignancy. DERMATOLOGIC: Denies rashes or pruritus. PSYCHIATRIC: Denies any suicidal or homicidal ideation. Denies hallucinations. PHYSICAL EXAM GENERAL APPEARANCE: The patient is awake, alert, and oriented, in no acute cardiopulmonary distress. NEUROLOGICAL: Cranial nerves II-XII grossly intact. Motor is 5/5 in bilateral upper and lower extremities proximal to distal. No sensory deficits. HEENT: Face is symmetric. Pupils are equal and reactive. Extraocular movements are intact. NECK: Supple. No JVD. No thyromegaly. No submental, submandibular, pre- /postauricular, occipital or supraclavicular lymphadenopathy. CHEST: Normal chest expansion. No Telemetry. LUNGS: Absence of any rales, rhonchi or any wheezing. CARDIOVASCULAR: Regular. S1 and S2 normal. No appreciable rubs, murmurs or gallops. ABDOMEN: Soft, nontender, and nondistended. There is no rebound, voluntary guarding, or rigidity. : Deferred. No Butt. EXTREMITIES: Non-edematous and not cyanotic. No clubbing. Good capillary refill. SKIN: No skin breakdown. Vital Signs (last 8hr) Date Time Temp Pulse Resp B/P (MAP) Pulse Ox O2 Delivery O2 Flow Rate FiO2 08/09/25 07:23 98.2 86 16 102/68 95 Room Air 08/09/25 04:00 97.7 82 20 94/64 96 Room Air LABS: Laboratory: Test 08/09/25 06:50 08/08/25 21:47 08/08/25 19:30 Range/Units White Blood Count 8.2 # 4.8-10.8 K/uL Red Blood Count 2.76 #L 4.50-6.20 MIL/uL Hemoglobin 8.8 #L 14.0-18.0 g/dL Hematocrit 26.7 #L 42-54 % Mean Corpuscular Volume 96.7 79-99 fL Mean Corpuscular Hemoglobin 31.9 27.0-33.0 pg Mean Corpuscular Hemoglobin Concent 33.0 32.0-36.0 g/dL Red Cell Distribution Width 22.8 H 11.0-15.5 % Platelet Count 158 130-400 K/uL Mean Platelet Volume 9.3 7.5-10.5 fL Immature Granulocyte % (Auto) 5.7 H 0-1 % Neutrophils (%) (Auto) 63.1 40.0-77.0 % Lymphocytes (%) (Auto) 21.1 21.0-51.0 % Monocytes (%) (Auto) 8.4 3.0-13.0 % Eosinophils (%) (Auto) 1.0 0.0-8.0 % Basophils (%) (Auto) 0.7 0.0-5.0 % Neutrophils # (Auto) 5.2 1.8-7.7 K/uL Lymphocytes # (Auto) 1.7 1.0-4.8 K/uL Monocytes # (Auto) 0.7 0.1-1.0 K/uL Eosinophils # (Auto) 0.08 0.00-0.70 K/uL Basophils # (Auto) 0.06 0.00-0.20 K/uL Absolute Immature Granulocyte (auto 0.47 0-1 K/uL Nucleated Red Blood Cells 0.6 H 0.0-0.19 % Prothrombin Time 10.9 9.6-11.6 SEC Prothromb Time International Ratio 1.03 0.85-1.15 Activated Partial Thromboplast Time 25.6 L 26.3-35.5 SEC Sodium Level 140 136-145 mmol/L Potassium Level 3.9 3.5-5.1 mmol/L Chloride Level 104 101-111 mmol/L Carbon Dioxide Level 23 21-32 mmol/L Blood Urea Nitrogen 10 7-18 mg/dL Creatinine 1.0 0.5-1.3 mg/dL Glomerular Filtration Rate Calc 80 >90 mL/min Random Glucose 84 70-105 mg/dL Total Calcium 5.7 *L 8.5-10.1 mg/dL Ionized Calcium 0.72 *L 1.15-1.33 MMOL/L Magnesium Level 1.60 L 1.80-2.40 mg/dL Iron Level 105 65-175 mcg/dL Total Iron Binding Capacity 256 250-450 mcg/dL Percent Iron Saturation 41.0 30-44 % Total Bilirubin 1.3 H 0.2-1.0 mg/dL Aspartate Amino Transf (AST/SGOT) 27 10-37 U/L Alanine Aminotransferase (ALT/SGPT) 17 12-78 U/L Alkaline Phosphatase 278 H 50-136 U/L Troponin I High Sensitivity 74 4-75 ng/L Total Protein 6.7 6.0-8.3 g/dL Albumin 3.4 L 3.5-5.0 g/dL Thyroid Stimulating Hormone (TSH) 3.31 0.36-3.74 uIU/mL Serum Alcohol < 3 0-10 mg/dL Red Blood Cell Morphology See comments Total Creatine Kinase 82 21-232 U/L Current Medications Medications (Trade) Dose Ordered Sig/Mari Route PRN Reason Start Time Stop Time Status Last Admin Dose Admin Acetaminophen (TYLenol 325MG TAB) 650 mg Q4H PRN PO MILD PAIN (1-3) 08/08/25 23:30 09/07/25 23:29 Acetaminophen (TYLenol 325MG TAB) 650 mg Q6H PRN PO TEMPERATURE GREATER THAN 101.5 08/08/25 23:30 09/07/25 23:29 Calcium Carbonate (Oyster Shell Ca 500mg Tab) 500 mg BID PO 08/09/25 21:00 08/14/25 20:59 Calcium Gluconate 1 gm/Sodium Chloride 100 ml @ 0 mls/hr Q8H5 IV 08/09/25 13:00 08/10/25 12:59 Chlordiazepoxide HCl (LIBrium 25 MG CAP) 25 mg Q2H PRN PO ALCOHOL WITHDRAWAL PROTOCOL 08/08/25 23:30 08/15/25 23:29 Chlordiazepoxide HCl (LIBrium 25 MG CAP) 50 mg Q1H PRN PO ALCOHOL WITHDRAWAL PROTOCOL 08/08/25 23:30 08/15/25 23:29 08/09/25 02:13 50 MG Famotidine (Pepcid 20mg Vial) 20 mg DAILY IV 08/09/25 09:00 09/08/25 08:59 08/09/25 08:38 20 MG Hydromorphone HCl (DiLAUDid 1MG INJ) 0.2 mg Q4H PRN IVP SEVERE PAIN (7-10) 08/09/25 10:30 08/14/25 10:29 Lorazepam (AtiVAN) 2 mg Q4H PRN IVP ALCOHOL WITHDRAWAL PROTOCOL 08/08/25 23:30 08/15/25 23:29 Magnesium Sulfate 50 ml @ 0 mls/hr PROTOCOL PRN IV OTHER [SEE ORDER COMMENTS] 08/08/25 23:30 09/07/25 23:29 Magnesium Sulfate 50 ml @ 0 mls/hr PROTOCOL PRN IV MAGNESIUM PROTOCOL 08/09/25 10:30 08/09/25 10:26 DC Ondansetron HCl (zoFRAN 4MG INJ) 4 mg Q6H PRN IV NAUSEA/VOMITING 08/08/25 23:30 1/20/26 23:29 Pharmacy Profile Note (Pharmacy Communication) 1 each PROTOCOL PRN MISC ETOH Withdrawal Score changes 08/08/25 23:30 08/08/25 23:50 DC Potassium Chloride 100 ml @ 50 mls/hr AD PRN IV POTASSIUM PROTOCOL 08/08/25 23:30 09/07/25 23:29 Potassium Chloride 100 ml @ 100 mls/hr AD PRN IV POTASSIUM PROTOCOL 08/09/25 06:30 08/09/25 06:32 DC Potassium Chloride (K-Dur/Klor-Con 20meq) 20 meq AD PRN PO POTASSIUM PROTOCOL 08/09/25 06:30 09/08/25 06:29 Potassium Chloride (KCl 10% Elixir 20meq/15ml) 20 meq AD PRN PO POTASSIUM PROTOCOL 08/09/25 06:30 09/08/25 06:29 Thiamine HCl 100 mg/Folic Acid 1 mg/Multivitamins/ Minerals 10 ml/ Sodium Chloride 1,011.2 ml @ 100 mls/ hr Q24H IV 08/08/25 23:30 08/11/25 09:37 08/09/25 00:30 100 MLS/[facility] DIAGNOSTICS / RADIOLOGY: [place] [address] IMAGING REPORT Signed PATIENT: ALICE KNOWLES MR#: [id number] : 1950 SEX: M AGE: 74 LOCATION: ED ORDER 13 STATUS: REG ER REPORT#: [id number] SERVICE 12 REASON: fall ORDERING PHYSICIAN: KAVITHA ENGLISH MD PROCEDURE: SHOL 2V RT - SHOULDER COMP 2+VWS RT EXAM: CR right Shoulder, 2 View. CLINICAL HISTORY: fall COMPARISON: None provided. FINDINGS: BONES: Acute comminuted fracture multi part fracture proximal humerus. Involves humeral neck as well as greater tuberosity. Some impaction JOINTS: No dislocation. The joint spaces are normal. SOFT TISSUES: The soft tissues are unremarkable. IMPRESSION: Acute comminuted fracture multi part fracture proximal humerus. Involves humeral neck as well as greater tuberosity. Some impaction /[place] DICTATED BY: ALICE VARELA MD DATE: 08/08/252137 ELECTRONICALLY SIGNED BY: ALICE VARELA MD DATE: 08/08/252137 [place] [id number] [place] [id number] IMAGING REPORT Signed PATIENT: ALICE KNOWLES MR#: [id number] : 1950 SEX: M AGE: 74 LOCATION: EDH ORDER 23 STATUS: REG ER REPORT#: [id number] SERVICE 22 REASON: Y VIEW PER DR R/O DISLOCATION ORDERING PHYSICIAN: KAVITHA ENGLISH MD PROCEDURE: MICHAEL 1V RT - SHOULDER LTD 1VW RT EXAM: CR right Shoulder, 1 View. CLINICAL HISTORY: Y VIEW PER DR R/Ady DISLOCATION COMPARISON: None provided. FINDINGS: BONES: No acute fracture or aggressive appearing osseous lesion. JOINTS: No dislocation evident on single view only SOFT TISSUES: The soft tissues are unremarkable. IMPRESSION: No dislocation evident on single view only /[place] DICTATED BY: ALICE VARELA MD DATE: 08/08/252308 ELECTRONICALLY SIGNED BY: ALICE VARELA MD DATE: 08/08/252308 ASSESSMENT: Acute comminuted fracture multipart fracture right proximal humerus per XR POA Status post fall injury POA Right shoulder pain POA Acute anemia POA Mild hypokalemia POA Hypocalcemia POA Elevated troponin POA Nicotine dependence POA Alcoholism POA Dementia POA Hypertension POA Hyperlipidemia POA Prostate cancer POA PLAN: Status post fall injury POA Right shoulder pain POA Acute comminuted fracture multipart fracture right proximal humerus per XR POA X-ray right shoulder showed acute comminuted multipart fracture proximal humerus involving neck as well as greater tuberosity with no dislocation. Dilaudid 0.2 mg q.4 PRN for severe pain Patient is currently NPO for probable surgery by Orthopedic surgeon Pending cardiology clearance for surgery Orthopedic surgery on board Hypocalcemia POA On presentation calcium 5.7, corrected calcium 6.18, ionised calcium 0.72 Patient is started on IV calcium gluconate1 g Q8 Started on calcium carbonate 500 mg b.i.d. PO Pending PTH, vitamin-D levels Elevated troponin POA On presentation troponin 106 followed by 96 Patient's history of silent inferior wall PA on 12 lead EKG with a Lexiscan Cardiolite in 2016 demonstrating in inferior ischemia Pending 12 lead EKG today Cardiology on Board, we will continue to follow their recommendations Alcoholism POA Patient says that he drinks1 pint of whiskey daily On presentation serum alcohol less than 3 Patient was started on CIWA protocol All home medication were reconciled and resumed GI prophylaxis with Pepcid 20 mg IV ATTESTATION BY PHYSICIAN I have seen and examined the patient. I reviewed the documentation, medical dec ision making, and treatment plan as noted by the resident physician above. I agree with the findings and plan of care. LEEANNE ORTEGA MD, ADIL SHAH QUADRI MD Aug 09, 2025 10:36
--- NOTE | 2025-08-09 11:32 | NUR ---
DCP:HOME Pt currently lives at home with his . Pt states that he has a walker and wheelchair at home. Pt denies a provider or home health services. Pt states that he can complete ADLs independently. PCP is Dr Omari Rawls and uses [facility] for any RX needs. At DC pt will want to go home and family can assist with transportation.
[2025-08-09] MEDS ORDERED: COMPOUND IV MISC 1 EACH IVSOLN MISC PRN (12:00)
[2025-08-09] MEDS ORDERED: COMPOUND IV REFRIGERATED 1 EACH IVSOLN MISC PRN (12:00)
[2025-08-09 12:11] LABS: AMPHET/METH SCREEN,URINE NEGATIVE (NEGATIVE); BARBITURATE SCREEN, URINE NEGATIVE (NEGATIVE); CANNABINOID SCREEN,URINE NEGATIVE (NEGATIVE); COCAINE SCREEN,URINE NEGATIVE (NEGATIVE)
[2025-08-09] MEDS: NICOTINE 21 MG/ 24 HR PATCH TD SCH (12:51)
[2025-08-09] MEDS: MAGNESIUM 2GM PREMIX 50ML 50 ML IV PRN (12:53)
[2025-08-09] MEDS ORDERED: BICA50TA7 PO (16:24)
[2025-08-09] MEDS: CALCIUM GLUC 1GM 1 GM in 0.9%NACL 100ML 100 ML IV SCH (17:17)
[2025-08-09] MEDS: CALCIUM CARB 500MG PO SCH (21:11)
[2025-08-09] MEDS: HYDROcodone/APAP 5/325 1 TAB TABLET PO PRN (21:12)
[2025-08-10] VITALS (7 sets, daily range): BP systolic 101–137; BP diastolic 58–86; PULSE 79–91; RESP 17–22; TEMP 97.6–99.1; O2SAT 98–100
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
[2025-08-10] MEDS: CALCIUM GLUC 1GM 1 GM in 0.9%NACL 100ML 100 ML IV SCH ×2 (01:41→10:08)
[2025-08-10 07:32] LABS: NUCLEATED RED BLOOD CELLS 0.6 % (0.0-0.19); PLATELET COUNT (AUTO) 149.0 K/uL (130-400); RED BLOOD CELL COUNT(AUTO) 2.52 MIL/uL (4.50-6.20); RED CELL DISTRIBUTION WIDTH 23.1 % (11.0-15.5); WHITE BLOOD COUNT (AUTO) 7.0 K/uL (4.8-10.8)
[2025-08-10 07:45] LABS: ASPARTATE AMINOTRANSFERASE 25.0 U/L (10-37); CREATININE 0.9 mg/dL (0.5-1.3); GLOMERULAR FILTR. RATE CALC 91.0 mL/min (>90); GLUCOSE,RANDOM 91.0 mg/dL (70-105); SODIUM SERUM 138.0 mmol/L (136-145); TOTAL PROTEIN, SERUM 5.9 g/dL (6.0-8.3); UREA NITROGEN, BLOOD 9.0 mg/dL (7-18)
--- NOTE | 2025-08-10 07:48 | PN ---
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 Current medications: Metoprolol succinate 12.5 in a.m., atorvastatin 80 mg at H S, nicotine patch. Assessment/plan: 74-year-old male presented for evaluation after a trip and fall. He has been diagnosed with fracture of right proximal humerus. Cardiology consult was requested due to minimally elevated troponin 106, 96, 74 andno acute findings on EKG. He was evaluated by orthopedic surgeon and no intervention was required. He is going to wear his sling and follow-up as an outpatient with Dr. Cavanaugh. This morning he has a blood pressure 120/62 he is afebrile heart rate is 84 beat s per minute and regular, lungs are clear to auscultation and no pedal edema noted. He has a sitter at bedside. Cardiac-beal patient is stable and be discharged when approved by primary physician. He can follow-up at [facility] in 1-2 weeks. CRUZ BARDALES Aug 10, 2025 07:48 RAYMUNDO IQBAL MD Aug 10, 2025 08:09
[2025-08-10] MEDS ORDERED: CALCIUM GLUC 1GM/10ML VIAL IV SCH (08:30)
[2025-08-10] MEDS: CALCIUM CARB 500MG PO SCH (09:30)
--- NOTE | 2025-08-10 09:59 | NUR ---
CIWA AP for CIWA protocol at this time, pt falling in and out of sleep. arousable to voice and touch Addendum: 08/10/25 at 1158 by NARCISA ESCALANTE RN RN Amended: Links added.
[2025-08-10] MEDS: ERGOCALCIFEROL (VITAMIN D2) 50,000 UNIT CAPSULE PO ONE (10:08)
--- NOTE | 2025-08-10 10:08 | NUR ---
MORNING PO MEDICATIONS HELD attempted to administer medication. pt arousable to voice and light touch. however continues to dose off, cannot safely administer medications due to risk of aspiration
--- NOTE | 2025-08-10 10:55 | PN ---
[facility] PROGRESS NOTE Date of Service: Aug 10, 2025 Time of Service: 10:55 SUBJECTIVE: HISTORY OF PRESENT ILLNESS: This is a 74-year-old male with past medical history of alcoholism,heavy smoker,prostate cancer,dementia,hypertension and hyperlipidemia who was brought by EMS to the ED after he fell on his driveway.As per patient he was walking on the driveway when his shoes slipped under his foot and fell on his right shoulder.Patient denies hitting his head,passing out or any seizure activity.Patient reports he is taking Plavix 75 mg po daily and his oncologist is and he is also getting chemotherapy as well. Patient also states that he smoke 1 pack of cigarette per day and drinks 6 beers per day and denies recreational drug use. Seen and examined patient in the Er awake,alert and coherent,patient appears comfortable.Patient denies headache,dizziness ,nausea,vomiting ,chest pain,palpitation and shortness of breath.Latest V/S temperature 98.2, heart rate 81, blood pressure 149/71 saturation 99% on room air.Labs : WBC 5, hemoglobin 6.8, hematocrit 21, platelet count 180. Potassium 3.4, random glucose 121, total calcium 5.7, troponin 106. Serum alcohol less than three. Right shoulder x-ray result revealed no dislocation evident on single view only. Right shoulder x-ray result revealed acute comminuted fracture multipart fracture proximal humerus involves humeral neck as well as greater tuberosity. Some impaction. While in the ER patient received 1 g calcium gluconate IV, Zofran 4 mg IV, Dilaudid 1 mg IV hydrocodone one tab p.o., dex 60 mg IV push and morphine 2 mg IV push.As per ER MD , has been notified about the consult and will evaluate the patient tomorrow. 08/09/2025: Patient was seen and evaluated this morning, no family at bedside. He is awake, alert, oriented x3, saturating 96% with room air. Patient complains of severe pain in right shoulder, denies any new or worsening symptoms. Patient says that he drinks 1 pint of whiskey daily. On presentation patient hemoglobin was 6.8, he received 1 unit of RBC yesterday. Morning lab showed H&H 8.8, 26.7, potassium 5.7, ionized calcium 0.72, albumin 3.4, corrected calcium 6.2. Chest x-ray showed acute comminuted multipart fracture proximal humerus, involving humeral neck as well as greater tuberosity with some impaction. Patient is currently on CIWA protocol, started IV calcium gluconate, oral calcium carbonate, nicotine patch, Dilaudid 0.2 mg for severe pain q.4 PRN. Cardiology, Orthopedic surgery on board we will continue to follow their recommendations. 08/10/2025: Patient was seen and evaluated this morning, no family at bedside. Patient following in and out of sleep, arousable to voice and touch. Morning labs revealed white count 7, H and H8.2, 24.4, sodium 138, potassium 3.2,25 hydroxy vitamin-D 8.8, calcium 5.3, corrected calcium 6.34, ionized calcium 0.75, phosphorus 2.3. We will Replace phosphate, calcium, potassium. Monitor for QT prolongation on EKG. Requested consultation with Dr. Villa patient is following with him outpatient for prostate carcinoma. Patient was cleared by Cardiology and Orthopedic surgery and asked to follow up outpatient. We will plan for discharge after patient is stable. REVIEW OF SYSTEMS CONSTITUTIONAL: Denies fevers, chills, or night sweats. No unintentional weight loss reported. NEUROLOGICAL: Denies headache, amaurosis fugax, motor weakness, sensory deficit, vertigo/spinning sensation, gait abnormalities, or tremors. ENT: No hearing loss, otalgia, otorrhea, rhinitis, rhinorrhea, hoarseness, or sore throat. CARDIOVASCULAR: Denies any exertional angina, dyspnea on exertion, orthopnea, paroxysmal nocturnal dyspnea, palpitations, life-threatening arrhythmias, claudication. PULMONARY: Denies any shortness of breath, cough, phlegm/sputum, hemoptysis, pleuritic chest pain. SLEEP: Denies morning headaches, daytime somnolence or napping. Denies difficulty falling asleep, staying asleep, waking from sleep. Denies knowledge of snoring. GASTROINTESTINAL: Denies any type of dysphagia to either liquids or solids. Denies nausea, vomiting, pyrosis, early satiety, abdominal pain, diarrhea, constipation, or changes in stool consistency or caliber. Denies coffee-ground emesis, hematemesis, hematochezia, or melanotic stools. GENITOURINARY: Denies frequency, urgency, nocturia, hematuria or incontinence (Storage/Irritative symptoms.) Low urinary stream, straining to void, urinary intermittency or hesitancy, splitting of the voiding stream, terminal dribbling. ENDOCRINOLOGIC: Denies polyuria, polydipsia, polyphagia or heat/cold intolerances. HEMATOLOGIC: Denies thrombophilia/previous clots, or coagulopathy/bleeding disorders. ONCOLOGIC: Denies personal history of malignancy. DERMATOLOGIC: Denies rashes or pruritus. PSYCHIATRIC: Denies any suicidal or homicidal ideation. Denies hallucinations. PHYSICAL EXAM GENERAL APPEARANCE: The patient is awake, alert, and oriented, in no acute cardiopulmonary distress. NEUROLOGICAL: Cranial nerves II-XII grossly intact. Motor is 5/5 in bilateral upper and lower extremities proximal to distal. No sensory deficits. HEENT: Face is symmetric. Pupils are equal and reactive. Extraocular movements are intact. NECK: Supple. No JVD. No thyromegaly. No submental, submandibular, pre- /postauricular, occipital or supraclavicular lymphadenopathy. CHEST: Normal chest expansion. No Telemetry. LUNGS: Absence of any rales, rhonchi or any wheezing. CARDIOVASCULAR: Regular. S1 and S2 normal. No appreciable rubs, murmurs or gallops. ABDOMEN: Soft, nontender, and nondistended. There is no rebound, voluntary guarding, or rigidity. : Deferred. No Butt. EXTREMITIES: Non-edematous and not cyanotic. No clubbing. Good capillary refill. SKIN: No skin breakdown. Vital Signs (last 8hr) Date Time Temp Pulse Resp B/P (MAP) Pulse Ox O2 Delivery O2 Flow Rate FiO2 08/10/25 08:00 97.5 87 19 132/74 100 Room Air 21 08/10/25 04:00 97.5 84 22 120/62 95 Room Air LABS: Laboratory: Test 08/10/25 10:30 08/10/25 07:05 08/09/25 11:45 08/09/25 10:15 Range/Units Ionized Calcium 0.75 *L 1.15-1.33 MMOL/L White Blood Count 7.0 4.8-10.8 K/uL Red Blood Count 2.52 L 4.50-6.20 MIL/uL Hemoglobin 8.2 L 14.0-18.0 g/dL Hematocrit 24.4 L 42-54 % Mean Corpuscular Volume 96.8 79-99 fL Mean Corpuscular Hemoglobin 32.5 27.0-33.0 pg Mean Corpuscular Hemoglobin Concent 33.6 32.0-36.0 g/dL Red Cell Distribution Width 23.1 H 11.0-15.5 % Platelet Count 149 130-400 K/uL Mean Platelet Volume 9.1 7.5-10.5 fL Nucleated Red Blood Cells 0.6 H 0.0-0.19 % Sodium Level 138 136-145 mmol/L Potassium Level 3.2 L 3.5-5.1 mmol/L Chloride Level 105 101-111 mmol/L Carbon Dioxide Level 23 21-32 mmol/L Blood Urea Nitrogen 9 7-18 mg/dL Creatinine 0.9 0.5-1.3 mg/dL Glomerular Filtration Rate Calc 91 >90 mL/min Random Glucose 91 70-105 mg/dL Total Calcium 5.3 *L 8.5-10.1 mg/dL Total Bilirubin 0.5 0.2-1.0 mg/dL Aspartate Amino Transf (AST/SGOT) 25 10-37 U/L Alanine Aminotransferase (ALT/SGPT) 12 12-78 U/L Alkaline Phosphatase 231 H 50-136 U/L Total Protein 5.9 L 6.0-8.3 g/dL Albumin 2.7 L 3.5-5.0 g/dL Urine Opiates Screen POSITIVE H NEGATIVE Urine Barbiturates Screen NEGATIVE NEGATIVE Urine Phencyclidine Screen NEGATIVE NEGATIVE Urine Amphetamines Screen NEGATIVE NEGATIVE Urine Benzodiazepines Screen NEGATIVE NEGATIVE Urine Cocaine Screen NEGATIVE NEGATIVE Urine Marijuana (THC) Screen NEGATIVE NEGATIVE Troponin I High Sensitivity 74 4-75 ng/L Vitamin D 25-Hydroxy 8.8 30.0-100.0 ng/mL Test 08/09/25 06:50 08/08/25 21:47 08/08/25 19:30 Range/Units Immature Granulocyte % (Auto) 5.7 H 0-1 % Neutrophils (%) (Auto) 63.1 40.0-77.0 % Lymphocytes (%) (Auto) 21.1 21.0-51.0 % Monocytes (%) (Auto) 8.4 3.0-13.0 % Eosinophils (%) (Auto) 1.0 0.0-8.0 % Basophils (%) (Auto) 0.7 0.0-5.0 % Neutrophils # (Auto) 5.2 1.8-7.7 K/uL Lymphocytes # (Auto) 1.7 1.0-4.8 K/uL Monocytes # (Auto) 0.7 0.1-1.0 K/uL Eosinophils # (Auto) 0.08 0.00-0.70 K/uL Basophils # (Auto) 0.06 0.00-0.20 K/uL Absolute Immature Granulocyte (auto 0.47 0-1 K/uL Prothrombin Time 10.9 9.6-11.6 SEC Prothromb Time International Ratio 1.03 0.85-1.15 Activated Partial Thromboplast Time 25.6 L 26.3-35.5 SEC Phosphorus Level 2.3 L 2.5-4.9 mg/dL Magnesium Level 1.60 L 1.80-2.40 mg/dL Iron Level 105 65-175 mcg/dL Total Iron Binding Capacity 256 250-450 mcg/dL Percent Iron Saturation 41.0 30-44 % Thyroid Stimulating Hormone (TSH) 3.31 0.36-3.74 uIU/mL Serum Alcohol < 3 0-10 mg/dL Red Blood Cell Morphology See comments Total Creatine Kinase 82 21-232 U/L Current Medications Medications (Trade) Dose Ordered Sig/Mari Route PRN Reason Start Time Stop Time Status Last Admin Dose Admin Acetaminophen (TYLenol 325MG TAB) 650 mg Q4H PRN PO MILD PAIN (1-3) 08/08/25 23:30 09/07/25 23:29 Acetaminophen (TYLenol 325MG TAB) 650 mg Q6H PRN PO TEMPERATURE GREATER THAN 101.5 08/08/25 23:30 09/07/25 23:29 Acetaminophen/ Hydrocodone Bitart (NORco 5/325MG) 1 tab Q4H PRN PO MODERATE PAIN (4-6) 08/09/25 14:00 08/14/25 13:59 08/09/25 21:12 1 TAB Atorvastatin Calcium (LIPItor 40MG) 80 mg HS PO 08/09/25 21:00 09/08/25 20:59 08/09/25 21:11 80 MG Calcitriol (Rocaltrol 0.25mcg Cap) 0.5 mcg DAILY PO 08/11/25 09:00 09/10/25 08:59 Calcium Carbonate (Oyster Shell Ca 500mg Tab) 500 mg BID PO 08/09/25 21:00 08/10/25 09:30 DC 08/09/25 21:11 500 MG Calcium Carbonate (Oyster Shell Ca 500mg Tab) 1,000 mg TID PO 08/10/25 09:30 08/15/25 09:29 08/10/25 10:10 1,000 MG Calcium Gluconate (Calcium Gluc 1gm Vial) 1 gm Q8H6 IV 08/10/25 08:30 08/10/25 08:30 DC Calcium Gluconate 1 gm/Sodium Chloride 100 ml @ 0 mls/hr Q8H IV 08/10/25 09:00 08/11/25 01:01 08/10/25 10:08 100 MLS/HR Calcium Gluconate 1 gm/Sodium Chloride 100 ml @ 0 mls/hr Q8H5 IV 08/09/25 13:00 08/10/25 00:13 DC 08/09/25 17:17 100 MLS/HR Calcium Gluconate 1 gm/Sodium Chloride 100 ml @ 0 mls/hr Q8H5 IV 08/10/25 01:00 08/10/25 03:00 DC 08/10/25 01:41 0 MLS/HR Chlordiazepoxide HCl (LIBrium 25 MG CAP) 25 mg Q2H PRN PO ALCOHOL WITHDRAWAL PROTOCOL 08/08/25 23:30 08/15/25 23:29 Chlordiazepoxide HCl (LIBrium 25 MG CAP) 50 mg Q1H PRN PO ALCOHOL WITHDRAWAL PROTOCOL 08/08/25 23:30 08/15/25 23:29 08/09/25 02:13 50 MG Clopidogrel Bisulfate (plaVIX 75MG) 75 mg DAILY PO 08/10/25 09:00 09/09/25 08:59 08/10/25 10:09 75 MG Famotidine (Pepcid 20mg Vial) 20 mg DAILY IV 08/09/25 09:00 09/08/25 08:59 08/10/25 10:08 20 MG Hydromorphone HCl (DiLAUDid 1MG INJ) 0.2 mg Q4H PRN IVP SEVERE PAIN (7-10) 08/09/25 10:30 08/14/25 10:29 08/09/25 16:20 0.2 MG Lorazepam (AtiVAN) 2 mg Q4H PRN IVP ALCOHOL WITHDRAWAL PROTOCOL 08/08/25 23:30 08/15/25 23:29 08/10/25 01:35 2 MG Magnesium Sulfate 50 ml @ 0 mls/hr PROTOCOL PRN IV OTHER [SEE ORDER COMMENTS] 08/08/25 23:30 09/07/25 23:29 08/09/25 12:53 50 MLS/HR Magnesium Sulfate 50 ml @ 0 mls/hr PROTOCOL PRN IV MAGNESIUM PROTOCOL 08/09/25 10:30 08/09/25 10:26 DC Metoprolol Succinate (TopROL XL) 12.5 mg AM PO 08/10/25 09:00 09/09/25 08:59 08/10/25 10:11 12.5 MG Multivitamins/ Minerals (Centrum) 1 tab DAILY08 PO 08/11/25 08:00 09/10/25 07:59 Nicotine (Nicoderm) 21 mg Q24H TD 08/09/25 13:00 09/08/25 12:59 08/09/25 12:51 21 MG Ondansetron HCl (zoFRAN 4MG INJ) 4 mg Q6H PRN IV NAUSEA/VOMITING 08/08/25 23:30 09/07/25 23:29 Pharmacy Profile Note (Pharmacy Communication) 1 each PROTOCOL PRN MISC ETOH Withdrawal Score changes 08/08/25 23:30 08/08/25 23:50 DC Potassium Chloride 100 ml @ 50 mls/hr AD PRN IV POTASSIUM PROTOCOL 08/08/25 23:30 09/07/25 23:29 08/10/25 10:51 50 MLS/HR Potassium Chloride 100 ml @ 100 mls/hr AD PRN IV POTASSIUM PROTOCOL 08/09/25 06:30 08/09/25 06:32 DC Potassium Chloride (K-Dur/Klor-Con 20meq) 20 meq AD PRN PO POTASSIUM PROTOCOL 08/09/25 06:30 09/08/25 06:29 Potassium Chloride (KCl 10% Elixir 20meq/15ml) 20 meq AD PRN PO POTASSIUM PROTOCOL 08/09/25 06:30 09/08/25 06:29 Potassium Phos/ Sodium Phos (PHOS-NaK PACKET 1 EACH) 1 packet TID PO 08/10/25 14:00 1/22/26 13:59 Thiamine HCl 100 mg/Folic Acid 1 mg/Multivitamins/ Minerals 10 ml/ Sodium Chloride 1,011.2 ml @ 100 mls/ hr Q24H IV 08/08/25 23:30 08/10/25 09:32 DC 08/09/25 23:30 100 MLS/HR DIAGNOSTICS / RADIOLOGY: [ ] It ASSESSMENT: Acute comminuted fracture multipart fracture right proximal humerus per XR POA Status post fall injury POA Right shoulder pain POA Acute anemia POA Mild hypokalemia POA Hypocalcemia POA Elevated troponin POA Nicotine dependence POA Alcoholism POA Dementia POA Hypertension POA Hypophosphatemia Hyperlipidemia POA Prostate cancer POA PLAN: Status post fall injury POA Right shoulder pain POA Acute comminuted fracture multipart fracture right proximal humerus per XR POA X-ray right shoulder showed acute comminuted multipart fracture proximal humerus involving neck as well as greater tuberosity with no dislocation. Dilaudid 0.2 mg q.4 PRN for severe pain Dr. Cavanaugh recommended to wear arm sling as needed for comfort, may remove it to bath, then reapply Ortho recommended for outpatient follow up in 4-5 weeks. Hypocalcemia POA On presentation calcium 5.7, corrected calcium 6.18, ionised calcium 0.72 Continue IV calcium gluconate1 g Q8 Started on calcium carbonate 1000 mg t.i.d. PO 25 hydroxy vitamin-D 8.8, started on calcitriol 0.5 mcg daily, ergocalciferol 17200 units once Pending PTH Elevated troponin POA On presentation troponin 106 followed by 96 Patient's history of silent inferior wall NJ on 12 lead EKG with a Lexiscan Cardiolite in 2016 demonstrating in inferior ischemia Pending 12 lead EKG today Cardiology cleared the patient for discharge, recommended outpatient follow up Alcoholism POA Patient says that he drinks1 pint of whiskey daily On presentation serum alcohol less than 3 Patient was started on CIWA protocol All home medication were reconciled and resumed GI prophylaxis with Pepcid 20 mg IV ATTESTATION BY PHYSICIAN I have seen and examined the patient. I reviewed the documentation, medical decision making, and treatment plan as noted by the resident physician above. I agree with the findings and plan of care. LEEANNE ORTEGA MD, ADIL SHAH QUADRI MD Aug 10, 2025 10:55
--- NOTE | 2025-08-10 11:06 | EKG ---
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
--- NOTE | 2025-08-10 11:16 | EKG ---
[facility] Test Date: 2025-08-10 Test Time: 11:03:39 Pat Name: ALICE KNOWLES Department: 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[id number] Requested By: STU WAGNER Order Number: [id number] Reading MD: Alice Quiroz Measurements Intervals [place] Rate: 83 P: -9 ME: 138 QRS: -25 QRSD: 82 T: 64 QT: 428 QTc: 502 Interpretive Statements Sinus rhythm with occasional premature ventricular complexes Low voltage QRS Inferior infarct , age undetermined Cannot rule out Anterior infarct , age undetermined Compared to ECG 08/10/2025 11:01:25 Ventricular premature complex(es) now present Accelerated junctional rhythm no longer present Myocardial infarct finding still present Electronically Signed On 08-10-2025 16:16:37 SALES AND SERVICE CHANGE LEADER by Alice Quiroz Please click the below link to view image of tracing.
--- NOTE | 2025-08-10 17:59 | NUR ---
CIKARINE DE SOUZA for CIWA protocol at this scheduled time, pt falling in and out of sleep. arousable to voice and touch Addendum: 08/10/25 at 1816 by NARCISA ESCALANTE RN RN Amended: Links added.
[2025-08-11 00:04] VITALS: BP 111/48; PULSE 94; RESP 17; TEMP 98.5
[2025-08-11 03:58] VITALS: BP 133/77; PULSE 92; RESP 18; TEMP 98.1
[2025-08-11 05:29] LABS: NUCLEATED RED BLOOD CELLS 0.4 % (0.0-0.19); PLATELET COUNT (AUTO) 158.0 K/uL (130-400); RED BLOOD CELL COUNT(AUTO) 2.53 MIL/uL (4.50-6.20); RED CELL DISTRIBUTION WIDTH 22.8 % (11.0-15.5); WHITE BLOOD COUNT (AUTO) 7.6 K/uL (4.8-10.8)
[2025-08-11 05:52] LABS: ASPARTATE AMINOTRANSFERASE 27 U/L (10-37); CREATININE 0.9 mg/dL (0.5-1.3); GLOMERULAR FILTR. RATE CALC 91 mL/min (>90); GLUCOSE,RANDOM 98 mg/dL (70-105); SODIUM SERUM 138 mmol/L (136-145); TOTAL PROTEIN, SERUM 6.4 g/dL (6.0-8.3); UREA NITROGEN, BLOOD 9 mg/dL (7-18)
[2025-08-11] MEDS: PoTASSium chloRIDE 20MEQ ER 20 MEQ ERTAB PO PRN (06:39)
[2025-08-11 08:00] VITALS: BP 91/57; PULSE 88; RESP 16; TEMP 98.3
--- NOTE | 2025-08-11 09:46 | PN ---
[facility] PROGRESS NOTE Date of Service: Aug 11, 2025 Time of Service: 09:45 SUBJECTIVE: HISTORY OF PRESENT ILLNESS: This is a 74-year-old male with past medical history of alcoholism,heavy smoker,prostate cancer,dementia,hypertension and hyperlipidemia who was brought by EMS to the ED after he fell on his driveway.As per patient he was walking on the driveway when his shoes slipped under his foot and fell on his right shoulder.Patient denies hitting his head,passing out or any seizure activity.Patient reports he is taking Plavix 75 mg po daily and his oncologist is and he is also getting chemotherapy as well. Patient also states that he smoke 1 pack of cigarette per day and drinks 6 beers per day and denies recreational drug use. Seen and examined patient in the Er awake,alert and coherent,patient appears comfortable.Patient denies headache,dizziness ,nausea,vomiting ,chest pain,palpitation and shortness of breath.Latest V/S temperature 98.2, heart rate 81, blood pressure 149/71 saturation 99% on room air.Labs : WBC 5, hemoglobin 6.8, hematocrit 21, platelet count 180. Potassium 3.4, random glucose 121, total calcium 5.7, troponin 106. Serum alcohol less than three. Right shoulder x-ray result revealed no dislocation evident on single view only. Right shoulder x-ray result revealed acute comminuted fracture multipart fracture proximal humerus involves humeral neck as well as greater tuberosity. Some impaction. While in the ER patient received 1 g calcium gluconate IV, Zofran 4 mg IV, Dilaudid 1 mg IV hydrocodone one tab p.o., dex 60 mg IV push and morphine 2 mg IV push.As per ER MD , has been notified about the consult and will evaluate the patient tomorrow. 08/09/2025: Patient was seen and evaluated this morning, no family at bedside. He is awake, alert, oriented x3, saturating 96% with room air. Patient complains of severe pain in right shoulder, denies any new or worsening symptoms. Patient says that he drinks 1 pint of whiskey daily. On presentation patient hemoglobin was 6.8, he received 1 unit of RBC yesterday. Morning lab showed H&H 8.8, 26.7, potassium 5.7, ionized calcium 0.72, albumin 3.4, corrected calcium 6.2. Chest x-ray showed acute comminuted multipart fracture proximal humerus, involving humeral neck as well as greater tuberosity with some impaction. Patient is currently on CIWA protocol, started IV calcium gluconate, oral calcium carbonate, nicotine patch, Dilaudid 0.2 mg for severe pain q.4 PRN. Cardiology, Orthopedic surgery on board we will continue to follow their recommendations. 08/10/2025: Patient was seen and evaluated this morning, no family at bedside. Patient following in and out of sleep, arousable to voice and touch. Morning labs revealed white count 7, H and H8.2, 24.4, sodium 138, potassium 3.2,25 hydroxy vitamin-D 8.8, calcium 5.3, corrected calcium 6.34, ionized calcium 0.75, phosphorus 2.3. We will Replace phosphate, calcium, potassium. Monitor for QT prolongation on EKG. Requested consultation with Dr. Villa patient is following with him outpatient for prostate carcinoma. Patient was cleared by Cardiology and Orthopedic surgery and asked to follow up outpatient. We will plan for discharge after patient is stable. REVIEW OF SYSTEMS CONSTITUTIONAL: Denies fevers, chills, or night sweats. No unintentional weight loss reported. NEUROLOGICAL: Denies headache, amaurosis fugax, motor weakness, sensory deficit, vertigo/spinning sensation, gait abnormalities, or tremors. ENT: No hearing loss, otalgia, otorrhea, rhinitis, rhinorrhea, hoarseness, or sore throat. CARDIOVASCULAR: Denies any exertional angina, dyspnea on exertion, orthopnea, paroxysmal nocturnal dyspnea, palpitations, life-threatening arrhythmias, claudication. PULMONARY: Denies any shortness of breath, cough, phlegm/sputum, hemoptysis, pleuritic chest pain. SLEEP: Denies morning headaches, daytime somnolence or napping. Denies difficulty falling asleep, staying asleep, waking from sleep. Denies knowledge of snoring. GASTROINTESTINAL: Denies any type of dysphagia to either liquids or solids. Denies nausea, vomiting, pyrosis, early satiety, abdominal pain, diarrhea, constipation, or changes in stool consistency or caliber. Denies coffee-ground emesis, hematemesis, hematochezia, or melanotic stools. GENITOURINARY: Denies frequency, urgency, nocturia, hematuria or incontinence (Storage/Irritative symptoms.) Low urinary stream, straining to void, urinary intermittency or hesitancy, splitting of the voiding stream, terminal dribbling. ENDOCRINOLOGIC: Denies polyuria, polydipsia, polyphagia or heat/cold intolerances. HEMATOLOGIC: Denies thrombophilia/previous clots, or coagulopathy/bleeding disorders. ONCOLOGIC: Denies personal history of malignancy. DERMATOLOGIC: Denies rashes or pruritus. PSYCHIATRIC: Denies any suicidal or homicidal ideation. Denies hallucinations. PHYSICAL EXAM GENERAL APPEARANCE: The patient is awake, alert, and oriented, in no acute cardiopulmonary distress. NEUROLOGICAL: Cranial nerves II-XII grossly intact. Motor is 5/5 in bilateral upper and lower extremities proximal to distal. No sensory deficits. HEENT: Face is symmetric. Pupils are equal and reactive. Extraocular movements are intact. NECK: Supple. No JVD. No thyromegaly. No submental, submandibular, pre- /postauricular, occipital or supraclavicular lymphadenopathy. CHEST: Normal chest expansion. No Telemetry. LUNGS: Absence of any rales, rhonchi or any wheezing. CARDIOVASCULAR: Regular. S1 and S2 normal. No appreciable rubs, murmurs or gallops. ABDOMEN: Soft, nontender, and nondistended. There is no rebound, voluntary guarding, or rigidity. : Deferred. No Butt. EXTREMITIES: Non-edematous and not cyanotic. No clubbing. Good capillary refill. SKIN: No skin breakdown. Vital Signs (last 8hr) Date Time Temp Pulse Resp B/P (MAP) Pulse Ox O2 Delivery O2 Flow Rate FiO2 08/11/25 08:00 98.2 88 16 91/57 99 Room Air 08/11/25 03:58 98.1 92 18 133/77 100 Room Air LABS: Laboratory: Test 08/11/25 05:22 08/10/25 10:30 08/09/25 11:45 08/09/25 10:15 Range/Units White Blood Count 7.6 4.8-10.8 K/uL Red Blood Count 2.53 L 4.50-6.20 MIL/uL Hemoglobin 8.3 L 14.0-18.0 g/dL Hematocrit 24.6 L 42-54 % Mean Corpuscular Volume 97.2 79-99 fL Mean Corpuscular Hemoglobin 32.8 27.0-33.0 pg Mean Corpuscular Hemoglobin Concent 33.7 32.0-36.0 g/dL Red Cell Distribution Width 22.8 H 11.0-15.5 % Platelet Count 158 130-400 K/uL Mean Platelet Volume 9.0 7.5-10.5 fL Nucleated Red Blood Cells 0.4 H 0.0-0.19 % Sodium Level 138 136-145 mmol/L Potassium Level 3.4 L 3.5-5.1 mmol/L Chloride Level 105 101-111 mmol/L Carbon Dioxide Level 24 21-32 mmol/L Blood Urea Nitrogen 9 7-18 mg/dL Creatinine 0.9 0.5-1.3 mg/dL Glomerular Filtration Rate Calc 91 >90 mL/min Random Glucose 98 70-105 mg/dL Total Calcium 6.2 L 8.5-10.1 mg/dL Phosphorus Level 2.4 L 2.5-4.9 mg/dL Magnesium Level 1.70 L 1.80-2.40 mg/dL Total Bilirubin 0.5 0.2-1.0 mg/dL Aspartate Amino Transf (AST/SGOT) 27 10-37 U/L Alanine Aminotransferase (ALT/SGPT) 12 12-78 U/L Alkaline Phosphatase 218 H 50-136 U/L Ammonia < 10 L 11-32 umol/L Total Protein 6.4 6.0-8.3 g/dL Albumin 2.9 L 3.5-5.0 g/dL Ionized Calcium 0.75 *L 1.15-1.33 MMOL/L Urine Opiates Screen POSITIVE H NEGATIVE Urine Barbiturates Screen NEGATIVE NEGATIVE Urine Phencyclidine Screen NEGATIVE NEGATIVE Urine Amphetamines Screen NEGATIVE NEGATIVE Urine Benzodiazepines Screen NEGATIVE NEGATIVE Urine Cocaine Screen NEGATIVE NEGATIVE Urine Marijuana (THC) Screen NEGATIVE NEGATIVE Troponin I High Sensitivity 74 4-75 ng/L Vitamin D 25-Hydroxy 8.8 30.0-100.0 ng/mL Current Medications Medications (Trade) Dose Ordered Sig/Mari Route PRN Reason Start Time Stop Time Status Last Admin Dose Admin Acetaminophen (TYLenol 325MG TAB) 650 mg Q4H PRN PO MILD PAIN (1-3) 08/08/25 23:30 09/07/25 23:29 Acetaminophen (TYLenol 325MG TAB) 650 mg Q6H PRN PO TEMPERATURE GREATER THAN 101.5 08/08/25 23:30 09/07/25 23:29 Acetaminophen/ Hydrocodone Bitart (NORco 5/325MG) 1 tab Q4H PRN PO MODERATE PAIN (4-6) 08/09/25 14:00 08/14/25 13:59 08/10/25 23:20 1 TAB Atorvastatin Calcium (LIPItor 40MG) 80 mg HS PO 08/09/25 21:00 09/08/25 20:59 08/10/25 23:21 80 MG Calcitriol (Rocaltrol 0.25mcg Cap) 0.5 mcg DAILY PO 08/11/25 09:00 09/10/25 08:59 Calcium Carbonate (Oyster Shell Ca 500mg Tab) 500 mg BID PO 08/09/25 21:00 08/10/25 09:30 DC 08/09/25 21:11 500 MG Calcium Carbonate (Oyster Shell Ca 500mg Tab) 1,000 mg TID PO 08/10/25 09:30 08/15/25 09:29 08/10/25 23:20 1,000 MG Calcium Gluconate (Calcium Gluc 1gm Vial) 1 gm Q8H6 IV 08/10/25 08:30 08/10/25 08:30 DC Calcium Gluconate 1 gm/Sodium Chloride 100 ml @ 0 mls/hr Q8H IV 08/10/25 09:00 08/11/25 01:01 DC 08/10/25 17:19 100 MLS/HR Calcium Gluconate 1 gm/Sodium Chloride 100 ml @ 0 mls/hr Q8H5 IV 08/09/25 13:00 08/10/25 00:13 DC 08/09/25 17:17 100 MLS/HR Calcium Gluconate 1 gm/Sodium Chloride 100 ml @ 0 mls/hr Q8H5 IV 08/10/25 01:00 08/10/25 03:00 IL 08/10/25 01:41 0 MLS/HR Chlordiazepoxide HCl (LIBrium 25 MG CAP) 25 mg Q2H PRN PO ALCOHOL WITHDRAWAL PROTOCOL 08/08/25 23:30 08/15/25 23:29 Chlordiazepoxide HCl (LIBrium 25 MG CAP) 50 mg Q1H PRN PO ALCOHOL WITHDRAWAL PROTOCOL 08/08/25 23:30 08/15/25 23:29 08/09/25 02:13 50 MG Clopidogrel Bisulfate (plaVIX 75MG) 75 mg DAILY PO 08/10/25 09:00 09/09/25 08:59 Famotidine (Pepcid 20mg Vial) 20 mg DAILY IV 08/09/25 09:00 09/08/25 08:59 08/09/25 08:38 20 MG Hydromorphone HCl (DiLAUDid 1MG INJ) 0.2 mg Q4H PRN IVP SEVERE PAIN (7-10) 08/09/25 10:30 08/14/25 10:29 08/09/25 16:20 0.2 MG Lorazepam (AtiVAN) 2 mg Q4H PRN IVP ALCOHOL WITHDRAWAL PROTOCOL 08/08/25 23:30 08/15/25 23:29 08/10/25 01:35 2 MG Magnesium Sulfate 50 ml @ 0 mls/hr PROTOCOL PRN IV OTHER [SEE ORDER COMMENTS] 08/08/25 23:30 09/07/25 23:29 08/09/25 12:53 50 MLS/HR Magnesium Sulfate 50 ml @ 0 mls/hr PROTOCOL PRN IV MAGNESIUM PROTOCOL 08/09/25 10:30 08/09/25 10:26 DC Metoprolol Succinate (TopROL XL) 12.5 mg AM PO 08/10/25 09:00 09/09/25 08:59 Multivitamins/ Minerals (Centrum) 1 tab DAILY08 PO 08/11/25 08:00 09/10/25 07:59 Nicotine (Nicoderm) 21 mg Q24H TD 08/09/25 13:00 09/08/25 12:59 08/10/25 13:29 21 MG Ondansetron HCl (zoFRAN 4MG INJ) 4 mg Q6H PRN IV NAUSEA/VOMITING 08/08/25 23:30 09/07/25 23:29 Pharmacy Profile Note (Pharmacy Communication) 1 each PROTOCOL PRN MISC ETOH Withdrawal Score changes 08/08/25 23:30 08/08/25 23:50 DC Potassium Chloride 100 ml @ 50 mls/hr AD PRN IV POTASSIUM PROTOCOL 08/08/25 23:30 09/07/25 23:29 08/10/25 17:19 50 MLS/HR Potassium Chloride 100 ml @ 100 mls/hr AD PRN IV POTASSIUM PROTOCOL 08/09/25 06:30 08/09/25 06:32 DC Potassium Chloride (K-Dur/Klor-Con 20meq) 20 meq AD PRN PO POTASSIUM PROTOCOL 08/09/25 06:30 09/08/25 06:29 08/11/25 06:39 20 MEQ Potassium Chloride (KCl 10% Elixir 20meq/15ml) 20 meq AD PRN PO POTASSIUM PROTOCOL 08/09/25 06:30 09/08/25 06:29 Potassium Phos/ Sodium Phos (PHOS-NaK PACKET 1 EACH) 1 packet TID PO 08/10/25 14:00 09/09/25 13:59 08/10/25 13:31 1 PACKET Thiamine HCl 100 mg/Folic Acid 1 mg/Multivitamins/ Minerals 10 ml/ Sodium Chloride 1,011.2 ml @ 100 mls/ hr Q24H IV 08/08/25 23:30 08/10/25 09:32 DC 08/09/25 23:30 100 MLS/HR DIAGNOSTICS / RADIOLOGY: [ ] It ASSESSMENT: Acute comminuted fracture multipart fracture right proximal humerus per XR POA Status post fall injury POA Right shoulder pain POA Acute anemia POA Mild hypokalemia POA Hypocalcemia POA Elevated troponin POA Nicotine dependence POA Alcoholism POA Dementia POA Hypertension POA Hypophosphatemia Hyperlipidemia POA Prostate cancer POA PLAN: Status post fall injury POA Right shoulder pain POA Acute comminuted fracture multipart fracture right proximal humerus per XR POA X-ray right shoulder showed acute comminuted multipart fracture proximal humerus involving neck as well as greater tuberosity with no dislocation. Dilaudid 0.2 mg q.4 PRN for severe pain Dr. Cavanaugh recommended to wear arm sling as needed for comfort, may remove it to bath, then reapply Ortho recommended for outpatient follow up in 4-5 weeks. Hypocalcemia POA On presentation calcium 5.7, corrected calcium 6.18, ionised calcium 0.72 Continue IV calcium gluconate1 g Q8 Started on calcium carbonate 1000 mg t.i.d. PO 25 hydroxy vitamin-D 8.8, started on calcitriol 0.5 mcg daily, ergocalciferol 68906 units once Pending PTH Elevated troponin POA On presentation troponin 106 followed by 96 Patient's history of silent inferior wall NE on 12 lead EKG with a Lexiscan Cardiolite in 2016 demonstrating in inferior ischemia Pending 12 lead EKG today Cardiology cleared the patient for discharge, recommended outpatient follow up Alcoholism POA Patient says that he drinks1 pint of whiskey daily On presentation serum alcohol less than 3 Patient was started on CIWA protocol All home medication were reconciled and resumed GI prophylaxis with Pepcid 20 mg IV STU WAGNER MD Aug 11, 2025 09:46
[2025-08-11] MEDS: CALCITRIOL 0.25 MCG CAP PO SCH (09:47)
[2025-08-11] MEDS: MULTIVITAMIN WITH MINERALS TABLET PO SCH (09:52)
--- NOTE | 2025-08-11 10:20 | NUR ---
AM METOPROLOL MEDICATION HELD DUE TO LOW BLOOD PRESSURE OF 92/54.
[2025-08-11] MEDS ORDERED: ERGOCALCIFEROL (VITAMIN D2) 50,000 UNIT CAPSULE PO ONE (11:30)
--- NOTE | 2025-08-11 11:45 | NUR ---
PATIENT REFUSED EKG AND TELEMETRY MONITORING. PT STATED WANTING TO LEAVE. PT SIGNED AMA FORM. DR.PRIYA THEO DAVIS.
--- NOTE | 2025-08-11 12:43 | CONS ---
CONSULT NOTE: Patient with past medical history significant for hyperlipidemia, hypertension with cerebral infarction. Patient with COPD. Patient also has coronary artery disease. This patient actually was felt to have pain to his bone weight loss and decreased appetite. His PSA was done which showed more than 4000. This is consistent most likely with metastatic prostate cancer. This patient does not have any imaging study. Patient does not have any tissue. Patient tired fatigue. Patient was started on Casodex PSMA PET CT scan done 07/21/2025 showed prostatomegaly with multifocal primary tumor. There is extensive diffuse osseous metastases. There is a right and mediastinal nodule uptake which could be reactive or metastatic also. Patient fell down and he fractured his humerus bone. Patient was evaluated by surgery and there was no plan for any surgery. So the patient actually want to go home. Past Medical History: Prostate Cancer Hyperlipidemia Hypertension Cerebral Infarction Silent Myocardial Ischemia Chronic Obstructive Pulmonary Disease Past Surgical History: Procedure: Laminectomy with spinal fusion (procedure) Medications: Apalutamide Oral 60 mg tablet 240 mg orally daily. Take whole, with or without food. Total daily dose is 240 mg. Metoprolol Oral 24 hr Tab (Succinate) 25 mg orally 2 times per day Clopidogrel Oral 75 mg orally daily Esomeprazole (Magnesium) Oral Delayed Release Capsule 40 mg orally daily Rosuvastatin Calcium Oral 40 mg orally daily Casodex (Bicalutamide Oral) 50 mg tablet 1 tablet orally daily. Losartan Oral 25 mg orally daily Medications reviewed and reconciled with patient. 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 HEENT: The patient denies any diplopia, hearing problems, oropharyngeal soreness, or jaundice. CARDIOPULMONARY: The patient denies any chest pain, palpitations, and shortness of breath or cough. GASTROINTESTINAL: Patient with decreased appetite and weight loss. The patient denies any dysphagia, nausea, vomiting, constipation, diarrhea, abdominal pain, or distention. GENITOURINARY: No dysuria, incontinence, or frequency. MUSCULOSKELETAL: Patient complaining of pain to the lower back and to the shoulder bilaterally. SKIN: The patient denies any rash or pruritus. NEUROLOGICAL: The patient denies any headache or double vision. Patient with difficulty hearing Vitals: Height: 70 in; Weight: 141.3 lb; Blood pressure: 107/58, Pulse: 73, Temperature: 96.2 F, Respirations: 16, Pain Scale: 2 Karnofsky: Not Assessed Physical Exam: GENERAL: No acute respiratory distress. VITAL SIGNS: Reviewed and stable. HEENT: The sclerae are clear. The pupils are equal and reactive to light. The oropharyngeal cavity is within normal limits. NECK: Supple without lymphadenopathy. CHEST: Lung is clear bilaterally there is no wheezing or crackles. HEART: Sounds are regular and rhythmic. ABDOMEN: No guarding or rigidity. Bowel sounds positive. EXTREMITIES: No pitting edema. No petechial lesions or bruises. SKIN: No bruises, rash, or petechial lesions. NEUROLOGICAL: The patient is alert and oriented. No focal deficits. Muscle strength is 5/5. LYMPH NODES: There is no lymphadenopathy could be felt in the neck, supraclavicular, or axillary. Impression: 1. Very elevated PSA more than 4000. With the patient have weight loss pain to the bone and decreased appetite. This is consistent with metastatic prostate cancer. PSMA PET CT scan done 07/21/2025 showed prostatomegaly with multifocal primary tumor. There is extensive diffuse osseous metastases. There is a right and mediastinal nodule uptake which could be reactive or metastatic also. 2. Status post falling with the patient fracture of the shoulder. The patient is not surgical candidate. 3. Hypertension 4. COPD 5. Coronary artery disease Plan: 1. PSMA PET CT scan done 07/21/2025 showed prostatomegaly with multifocal primary tumor. There is extensive diffuse osseous metastases. There is a right and mediastinal nodule uptake which could be reactive or metastatic also. 2. This patient does not want to stay and he want to sign AGAINST MEDICAL ADVICE. 3. Advised patient to follow-up with us as scheduled CASSI BREWER MD Aug 11, 2025 12:43
[2025-08-11 12:49] VITALS: O2SAT 99
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
== END 2025-08-11 12:45 | disposition left against medical advice (07) | DRG 562 ==
LOC: EDH 18:46 → EDHIP 23:20 → 4BH 08-09 00:45
PROVIDERS: ADMIT Internal Medicine; ATTEND Internal Medicine
PROC: 30233N1 Transfusion of Nonautologous Red Blood Cells into Peripheral Vein, Percutaneous Approach (ICD-10-PCS; principal; 2025-08-09)
DX: S42.291A Other displaced fracture of upper end of right humerus, initial encounter for closed fracture (principal); I21.A1 Myocardial infarction type 2; C79.51 Secondary malignant neoplasm of bone; E83.39 Other disorders of phosphorus metabolism; E83.51 Hypocalcemia; S42.201A Unspecified fracture of upper end of right humerus, initial encounter for closed fracture; Z79.02 Long term (current) use of antithrombotics/antiplatelets; C61 Malignant neoplasm of prostate; F10.239 Alcohol dependence with withdrawal, unspecified; D64.9 Anemia, unspecified; F03.90 Unspecified dementia, unspecified severity, without behavioral disturbance, psychotic disturbance, mood disturbance, and anxiety; I10 Essential (primary) hypertension; J44.9 Chronic obstructive pulmonary disease, unspecified; E78.5 Hyperlipidemia, unspecified; E87.6 Hypokalemia; F17.210 Nicotine dependence, cigarettes, uncomplicated; Z53.29 Procedure and treatment not carried out because of patient's decision for other reasons; I25.10 Atherosclerotic heart disease of native coronary artery without angina pectoris; N40.0 Benign prostatic hyperplasia without lower urinary tract symptoms; W01.0XXA Fall on same level from slipping, tripping and stumbling without subsequent striking against object, initial encounter; Y93.89 Activity, other specified; Y92.89 Other specified places as the place of occurrence of the external cause; Y99.8 Other external cause status; I25.2 Old myocardial infarction; Z79.899 Other long term (current) drug therapy; Z80.42 Family history of malignant neoplasm of prostate; Z85.46 Personal history of malignant neoplasm of prostate; Z86.73 Personal history of transient ischemic attack (TIA), and cerebral infarction without residual deficits; Z98.1 Arthrodesis status
CPT/HCPCS: 36415; 36430; 73020; 73030; 80048; 80053; 80305; 82140; 82306; 82330; 82340; 82550; 82784; 83516; 83540; 83550; 83735; 83970; 84100; 84443; 84484; 85025; 85027; 85610; 85730; 86231; 86364; 86850; 86900; 86901; 86923; 93005; 96374; 96375; 99285; G0378; J0612; J1171; J2060; J2270; J2405; J3411; J3475; J3480; J3490; J7030; P9016; J1308; J2360